=== PATIENT | female | born 1990 | race Caucasian/White ===

== ENCOUNTER 2017-11-01 11:24 | Emergency (ER) | payer SELFPAY ==
[~2017-11-01] VITALS: Ht 180.3 cm; Wt 85.7 kg
[~2017-11-01 11:24] MED LIST: AMOX500C2 PO; BUTA1CAP45 PO; CEFD300C3 PO; HYDR-3816 PO; INDO50CA PO; MECL-124 PO; NAPR-243 PO; NITR-65 PO; OXYC-12 PO; PRD20T PO; PRM25T PO; TRAM50TA2 PO
[2017-11-01] MEDS ORDERED: oxyCODONE/APAP 10/325MG (PERCOCET 10) TABLET PO ONE (12:00)
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
[2017-11-01] MEDS ORDERED: ONDANSETRON 4 MG (ZOFRAN) ORAL DISSOLVE TAB PO ONE (12:15)
[2017-11-01 12:25] LABS: BASOPHILS # (AUTO) 0.1 10^3/uL (0.0-0.1); BASOPHILS % (AUTO) 1 % (0-10); EOSINOPHILS # (AUTO) 0.1 10^3/uL (0.0-0.3); EOSINOPHILS % (AUTO) 1 % (0-10); HEMATOCRIT 41 % (35-52); HEMOGLOBIN 13.2 G/DL (11.5-16.0); LYMPHOCYTES # (AUTO) 1.7 X 10^3 (1.0-4.0); LYMPHOCYTES % (AUTO) 20 % (12-44); MEAN CORPUSCULAR HEMOGLOBIN 22 PG (25-34); MEAN CORPUSCULAR HGB CONC 32 G/DL (32-36); MEAN CORPUSCULAR VOLUME 69 FL (80-99); MEAN PLATELET VOLUME 10.2 FL (7.4-10.4); MONOCYTES # (AUTO) 0.4 X 10^3 (0.0-1.0); MONOCYTES % (AUTO) 5 % (0-12); NEUTROPHILS # (AUTO) 6.1 X 10^3 (1.8-7.8); NEUTROPHILS % (AUTO) 73 % (42-75); PLATELET COUNT 413 10^3/uL (130-400); RED BLOOD COUNT 5.98 10^6/uL (4.35-5.85); WHITE BLOOD COUNT 8.5 10^3/uL (4.3-11.0)
[2017-11-01 12:43] LABS: ALANINE AMINOTRANSFERASE 36 U/L (0-55); ALBUMIN 4.5 GM/DL (3.2-4.5); ALKALINE PHOSPHATASE 136 U/L (40-136); BILIRUBIN,TOTAL 0.3 MG/DL (0.1-1.0); BUN/CREATININE RATIO 13; CALCIUM 9.7 MG/DL (8.5-10.1); CARBON DIOXIDE 21 MMOL/L (21-32); CHLORIDE 115 MMOL/L (98-107); CREATININE SERUM 0.77 MG/DL (0.60-1.30); GFR ESTIMATED > 60; GLUCOSE 95 MG/DL (70-105); POTASSIUM 3.6 MMOL/L (3.6-5.0); SODIUM 147 MMOL/L (135-145); TOTAL PROTEIN 7.9 GM/DL (6.4-8.2)
[2017-11-01 12:59] LABS: ERYTHROCYTE SEDIMENTATION RATE 3 MM/HR (0-20)
[2017-11-01 13:18] LABS: BILIRUBIN,URINE NEGATIVE (NEGATIVE); CLARITY,URINE SLIGHTLY CLOUDY; COLOR,URINE AMBER; GLUCOSE, URINE (UA) NEGATIVE (NEGATIVE); KETONES,URINE NEGATIVE (NEGATIVE); LEUKOCYTE ESTERASE ,URINE 2+ (NEGATIVE); NITRITE,URINE NEGATIVE (NEGATIVE); PH,URINE 5 (5-9); PROTEIN,URINE 2+ (NEGATIVE); UROBILINOGEN,URINE NORMAL (NORMAL)
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
[2017-11-01 13:32] LABS: AMPHETAMINE SCREEN, URINE NEGATIVE (NEGATIVE); BARBITURATE SCREEN URINE NEGATIVE (NEGATIVE); BENZODIAZEPINES SCREEN URINE NEGATIVE (NEGATIVE); CANNABINOID SCREEN, URINE POSITIVE (NEGATIVE); COCAINE SCREEN URINE NEGATIVE (NEGATIVE); METHADONE STAT NEGATIVE (NEGATIVE); METHAMPHETAMINE SCREEN URINE S NEGATIVE (NEGATIVE); OPIATE SCREEN URINE POSITIVE (NEGATIVE); OXYCODONE STAT NEGATIVE (NEGATIVE); PROPOXYPHENE STAT NEGATIVE (NEGATIVE); TRICYCLIC ANTIDEPRESSANTS SCRE NEGATIVE (NEGATIVE)
[2017-11-01 13:43] LABS: BACTERIA,URINE TRACE /HPF; RBC,URINE RARE /HPF
[2017-11-01 13:44] LABS: AMORPHOUS SEDIMENT,UR LARGE AMOR URATES /LPF
[2017-11-01] MEDS ORDERED: MORP15TA69 PO (14:15)
[2017-11-01] MEDS ORDERED: OXYC-202 PO (14:15)
[2017-11-01 14:47] VITALS: BP 112/74
== END 2017-11-01 14:47 | disposition home or self-care (01) ==
LOC: EDUNIT# 11:24 → ER 11:27
DX: S72.8X1A Other fracture of right femur, initial encounter for closed fracture (principal); S71.101A Unspecified open wound, right thigh, initial encounter; G40.909 Epilepsy, unspecified, not intractable, without status epilepticus; G43.909 Migraine, unspecified, not intractable, without status migrainosus; F41.9 Anxiety disorder, unspecified; F32.9 Major depressive disorder, single episode, unspecified; Z88.5 Allergy status to narcotic agent
CPT/HCPCS: 36415; 73552; 80053; 80306; 81000; 85025; 85652; 86141; 87040; 87070; 87205

== ENCOUNTER 2017-11-07 02:59 | Emergency (ER) | payer SELFPAY ==
[~2017-11-07] VITALS: Ht 180.3 cm; Wt 85.7 kg
[~2017-11-07 02:59] MED LIST changes: +MORP15TA69 PO; +OXYC-202 PO
[2017-11-07] MEDS ORDERED: GABA800T PO (03:14)
[2017-11-07] MEDS ORDERED: NS IV 1000 ML 1,000 ML IV ONE (03:24)
[2017-11-07] MEDS ORDERED: HYOSCYAMINE 0.125 MG (LEVSIN) TAB SL ONE (03:30)
[2017-11-07] MEDS ORDERED: ONDANSETRON 4 MG/2 ML (SDV) Z0FRAN IVP ONE (03:30)
[2017-11-07 03:31] LABS: BILIRUBIN,URINE NEGATIVE (NEGATIVE); CLARITY,URINE CLEAR; COLOR,URINE AMBER; GLUCOSE, URINE (UA) NEGATIVE (NEGATIVE); KETONES,URINE NEGATIVE (NEGATIVE); LEUKOCYTE ESTERASE ,URINE 2+ (NEGATIVE); NITRITE,URINE NEGATIVE (NEGATIVE); PH,URINE 6 (5-9); PROTEIN,URINE 2+ (NEGATIVE); UROBILINOGEN,URINE NORMAL (NORMAL)
--- NOTE | 2017-11-07 03:38 | ED Abdominal Pain ---
General Chief Complaint: Abdominal/GI Problems Stated Complaint: VOMITING,SEVERE ABD PAIN Nursing Triage Note: N/V, ABD PAIN Sepsis Screen: No Definite Risk Source of Information: Patient Exam Limitations: No Limitations (DAVID GALLEGOS MD) History of Present Illness Date Seen by Provider: Nov 07, 2017 Time Seen by Provider: 03:11 Initial Comments This 27-year-old young lady presents to the emergency room with abdominal pain and cramping, vomiting, and mild diarrhea that started around 01:30. She describes the pain as a waxing and waning burning. She denies . She has had no fever. She has had no blood in her emesis or diarrhea. Patient is new to the area and has no primary care provider. She moved from [place] where she was being treated for osteomyelitis of the right femur. She is on long- term antibiotics. She has a wound dressing on the lateral right thigh. (DAVID GALLEGOS MD) Allergies and Home Medications Allergies Coded Allergies: codeine (Unverified Allergy, Unknown, 11/01/17) Home Medications Butalb/Acetaminophen/Caffeine 1 Each Capsule, 1-2 EACH PO Q6H PRN for HEADACHE Prescribed by: SHARONDA PHOENIX on 03/28/15 0419 Morphine Sulfate 15 Mg Tablet.er, 15 MG PO BID Prescribed by: AIYANA MCNAMARA on 11/01/17 1415 Oxycodone HCl/Acetaminophen 1 Each Tablet, 1 EACH PO Q6H PRN for PAIN-MODERATE Prescribed by: AIYANA MCNAMARA on 11/01/17 1415 Patient Home Medication List Home Medication List Reviewed: Yes (DAVID GALLEGOS MD) Review of Systems Constitutional: no symptoms reported EENTM: No Symptoms Reported Respiratory: No Symptoms Reported Cardiovascular: No Symptoms Reported Gastrointestinal: See HPI Genitourinary: No Symptoms Reported Musculoskeletal: no symptoms reported Skin: no symptoms reported Psychiatric/Neurological: No Symptoms Reported Endocrine: No Symptoms Reported Hematologic/Lymphatic: No Symptoms Reported (DAVID GALLEGOS MD) Past Ztfflbz-Hhxhqk-Pbxntg Hx Past Med/Social Hx: Reviewed and Corrections made (DAVID GALLEGOS MD) Patient Social History Alcohol Use: Denies Use Recreational Drug Use: No Smoking Status: Current Everyday Smoker 2nd Hand Smoke Exposure: Yes Recent Foreign Travel: No Contact w/Someone Who Travel: No Recent Infectious Disease Expo: No Recent Hopitalizations: Yes (E.D. 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 ) Headaches /Migraines, Seizure Disorder : No Reproductive Disorders: No Genitourinary: No Gastrointestinal: No Musculoskeletal: Yes (LEFT CARPAL TUNNEL-NO REPAIR, osteomyelitis right femur with chronic open wound) Endocrine: No Cancer: No Psychosocial: Yes (NO LONGER ON MEDS) Anxiety, Depression Integumentary: No Blood Disorders: No (anemia with ) Adverse Reaction/Blood Tranf: No (DAVID GALLEGOS MD) Physical Exam Vital Signs Vital Signs - First Documented 11/07/17 03:05 Temp 97.9 Pulse 75 Resp 18 B/P (MAP) 117/89 (98) Pulse Ox 99 O2 Delivery Room Air (MANGO KAISER MD) Vital Signs Capillary Refill : Less Than 3 Seconds (DAVID GALLEGOS MD) Height/Weight/BMI Height: 5'11.00" Weight: 189lbs. oz. 85.887180gh; 24.82 BMI Method:Stated General Appearance: WD/WN, mild distress HEENT: PERRL/EOMI, normal ENT inspection, other (mucous membranes somewhat dry) Neck: normal inspection Respiratory: lungs clear, normal breath sounds, no respiratory distress, no accessory muscle use Cardiovascular: regular rate, rhythm, no edema, no murmur Gastrointestinal: soft, abnormal bowel sounds (decreased), tenderness ( scattered, most prominent in the epigastrium and right upper quadrant) Extremities: no pedal edema, other (Post traumatic and surgical changes in the right thigh with draining tunneling wound on the right lateral thigh.) Neurologic/Psychiatric: floral manager II-XII nml as tested, no motor/sensory deficits, alert, normal mood/affect, oriented x 3 Skin: normal color, warm/dry (DAVID GALLEGOS MD) Procedures/Interventions Suture Size: 4-0 (DAVID GALLEGOS MD) Progress/Results/Core Measures Results/Orders Lab Results Laboratory Tests Test 11/07/17 03:00 11/07/17 03:35 Range/Units Urine Color [place] H Urine Clarity CLEAR Urine pH 6 5-9 Urine Specific [place] 1.020 1.016-1.022 Urine Protein 2+ H NEGATIVE Urine Glucose (UA) NEGATIVE NEGATIVE Urine Ketones NEGATIVE NEGATIVE Urine Nitrite NEGATIVE NEGATIVE Urine Bilirubin NEGATIVE NEGATIVE Urine Urobilinogen NORMAL NORMAL MG/DL Urine Leukocyte Esterase 2+ H NEGATIVE Urine RBC (Auto) NEGATIVE NEGATIVE Urine RBC NONE /HPF Urine WBC 2-5 /HPF Urine Squamous Epithelial Cells 2-5 /HPF Urine Crystals NONE /LPF Urine Bacteria FEW H /HPF Urine Casts NONE /LPF Urine Mucus LARGE H /LPF Urine Culture Indicated NO White Blood Count 8.5 4.3-11.0 10^3/uL Red Blood Count 5.76 4.35-5.85 10^6/uL Hemoglobin 12.5 11.5-16.0 G/DL Hematocrit 39 35-52 % Mean Corpuscular Volume 68 L 80-99 FL Mean Corpuscular Hemoglobin 22 L 25-34 PG Mean Corpuscular Hemoglobin Concent 32 32-36 G/DL Red Cell Distribution Width 16.5 H 10.0-14.5 % Platelet Count 310 130-400 10^3/uL Mean Platelet Volume 10.3 7.4-10.4 FL Neutrophils (%) (Auto) 68 42-75 % Lymphocytes (%) (Auto) 23 12-44 % Monocytes (%) (Auto) 5 0-12 % Eosinophils (%) (Auto) 3 0-10 % Basophils (%) (Auto) 1 0-10 % Neutrophils # (Auto) 5.8 1.8-7.8 X 10^3 Lymphocytes # (Auto) 2.0 1.0-4.0 X 10^3 Monocytes # (Auto) 0.4 0.0-1.0 X 10^3 Eosinophils # (Auto) 0.2 0.0-0.3 10^3/uL Basophils # (Auto) 0.0 0.0-0.1 10^3/uL Sodium Level 148 H 135-145 MMOL/L Potassium Level 3.1 L 3.6-5.0 MMOL/L Chloride Level 115 H 98-107 MMOL/L Carbon Dioxide Level 23 21-32 MMOL/L Anion Gap 10 5-14 MMOL/L Blood Urea Nitrogen 7 7-18 MG/DL Creatinine 0.69 0.60-1.30 MG/DL Estimat Glomerular Filtration Rate > 60 BUN/Creatinine Ratio 10 Glucose Level 105 70-105 MG/DL Calcium Level 9.7 8.5-10.1 MG/DL Magnesium Level 2.1 1.8-2.4 MG/DL Total Bilirubin 0.3 0.1-1.0 MG/DL Aspartate Amino Transf (AST/SGOT) 29 5-34 U/L Alanine Aminotransferase (ALT/SGPT) 36 0-55 U/L Alkaline Phosphatase 118 40-136 U/L Total Protein 7.3 6.4-8.2 GM/DL Albumin 4.2 3.2-4.5 GM/DL Lipase 32 8-78 U/L Serum Test, Qualitative NEGATIVE NEGATIVE (MANGO KAISER MD) Medications Given in ED Current Medications Medications Dose Ordered Sig/Taryn Route Start Time Stop Time Status Last Admin Dose Admin Al Hydrox/Mg Hydrox/Simethicone 30 ml ONCE ONCE PO 11/07/17 04:45 11/07/17 04:46 DC 11/07/17 05:10 30 ML Fentanyl Citrate 50 mcg ONCE ONCE IVP 11/07/17 04:15 11/07/17 04:16 DC 11/07/17 04:10 50 MCG Fentanyl Citrate 100 mcg ONCE ONCE IVP 11/07/17 06:00 11/07/17 06:01 DC 11/07/17 05:58 100 MCG Hyoscyamine Sulfate 0.25 mg ONCE ONCE SL 11/07/17 03:30 11/07/17 03:31 DC 11/07/17 03:37 0.25 MG Iohexol 100 ml ONCE ONCE IV 11/07/17 06:00 11/07/17 06:01 DC 11/07/17 06:15 100 ML Lidocaine HCl 15 ml ONCE ONCE PO 11/07/17 04:45 11/07/17 04:46 DC 11/07/17 05:10 15 ML Ondansetron HCl 8 mg ONCE ONCE IVP 11/07/17 03:30 11/07/17 03:31 DC 11/07/17 03:37 8 MG Promethazine HCl 25 mg ONCE ONCE IVP 11/07/17 04:15 11/07/17 04:16 DC 11/07/17 04:17 25 MG Ranitidine HCl 50 mg ONCE ONCE IV 11/07/17 04:45 11/07/17 04:46 DC 11/07/17 05:10 50 MG Sodium Chloride 250 ml ONCE ONCE IV 11/07/17 06:00 11/07/17 06:01 DC 11/07/17 06:15 80 ML Sodium Chloride 1,000 ml @ 0 mls/hr Q0M ONCE IV 11/07/17 03:24 11/07/17 03:26 DC 11/07/17 03:37 0 MLS/HR (MANGO KAISER MD) Vital Signs/I&O 11/07/17 03:05 Temp 97.9 Pulse 75 Resp 18 B/P (MAP) 117/89 (98) Pulse Ox 99 O2 Delivery Room Air (MANGO KAISER MD) Blood Pressure Mean: 98 Progress Progress Note #1: Time: 03:38 Progress Note Patient seen and examined. Labs and UA ordered. IV fluids ordered along with Levsin and Zofran for treatment of symptoms. Progress Note #2: Time: 05:02 Progress Note The patient's nausea has improved after Zofran and Phenergan but pain continues despite receiving fentanyl. Patient was reexamined and found to have persistent tenderness especially in the epigastrium and right upper quadrant. She is surgically absent gallbladder. GI cocktail and ranitidine have been ordered. Progress Note #3: Time: 06:00 Progress Note Patient stated the GI cocktail and ranitidine temporarily improved her pain but the pain rebounded with more intensity. She was in distress from the pain. Fentanyl 100 g was ordered. Patient is agreeable to further workup with CT of the abdomen and pelvis. Care of this patient is being transferred to Dr. Kaiser. (DAVID GALLEGOS MD) Progress Note : Progress Note 0640: I have reexamined the patient. She is complaining of lower abdominal pain centrally between the bellybutton and the symphysis pubis that radiates up to her chest and back. She states that it's quite severe at times although a little better now after the fentanyl. Heart is regular in rate and rhythm. Lungs are clear to auscultation bilaterally. Bowel sounds are normal. Abdomen is soft with tenderness in the area described above. There is no rebound or guarding. CT abdomen and pelvis are pending. I did discuss with her about establishing care here. She did have appointment at [facility] yesterday and they will refill her chronic pain medicines as well as prescriptions for antibiotics for her leg. They are working other issues related to insurance and referral for her chronic leg wound. Monitor patient. 0744: Patient still a little bit of pain but states much better. CT is reassuring at this point. She would like to just go home and then she'll return if things worsen. We will initiate outpatient [id number]-yot-[id number] famotidine. Discharged home with return precautions. Patient verbalize understanding instructions and agreement with plan. (MANGO KAISER MD) Diagnostic Imaging Diagonstic Imaging: CT Plain Films/CT/US/NM/MRI: abdomen, pelvis Comments VIA [facility]. [place], [place] NAME: THIAGO TAVAREZ [facility] REC#: [id number] PT STATUS: REG ER : 1990 PHYSICIAN: DAVID GALLEGOS MD ADMIT DATE: 11/07/17/ER Draft Date of Exam:11/07/17 CT ABDOMEN/PELVIS W PROCEDURE: CT abdomen and pelvis with contrast. TECHNIQUE: Multiple contiguous axial images were obtained through the abdomen and pelvis after administration of intravenous contrast. INDICATION: Nausea, vomiting, abdominal pain, history of trauma. COMPARISON: None. FINDINGS: The lung bases are clear. The gallbladder is surgically absent. Solid organs, vascular structures and bowel are grossly unremarkable. There is no free air or abscess. There is a MANAGER CARGO shunt line terminating within the pelvis. There is trace free fluid within the pelvis. Uterus is intact. Distal ureters and urinary bladder are grossly normal. Chronic pelvic fractures are present. There is no inflammatory process. IMPRESSION: 1. Surgically absent gallbladder. 2. MANAGER CARGO shunt line terminating within the pelvis with small amount of ascites. This could be physiologic from the ovaries or the drainage from the line itself. 3. Remainder of the abdomen and pelvis is within normal limits. Dictated on workstation # [id number] Dict: 11/07/17 0651 Trans: 11/07/17 0715 [facility] [id number] Interpreted by: CHANO LOMELI Electronically signed by: Reviewed: Reviewed by Me (MANGO KAISER MD) Departure Impression Primary Impression: Nausea vomiting and diarrhea Additional Impression: Lower abdominal pain Disposition: 01 HOME, SELF-CARE Condition: Stable Departure-Patient Inst. Decision time for Depature: 07:44 (MANGO KAISER MD) Referrals: [facility] (PCP/Family) Primary Care Physician CHELSEA EDGAR DO Patient Instructions: Acute Abdomen (Belly Pain), Adult (DC), Diarrhea and Traveler's Diarrhea, Adult (DC), Nausea and Vomiting, Adult (DC) Add. Discharge Instructions: All discharge instructions reviewed with patient and/or family. Voiced understanding. Continue home medicines as previously prescribed. Follow-up with your doctor this week for recheck and further evaluation. You may follow-up with the surgeon listed or of your choice within the next week as needed. You may initiate [id number] Pepcid or the generic famotidine 20 mg twice daily for the next 3 days and then daily thereafter as needed for stomach upset. Clear liquid diet for the next 24 hours and then advance as tolerated. Return for worse pain, fever, vomiting, weakness, breathing problems or other concerns as needed. Copy Copies To 1: JERE PENA JOSHUA T MD Nov 07, 2017 03:38 MANGO KAISER MD Nov 07, 2017 07:29
[2017-11-07 03:40] LABS: BACTERIA,URINE FEW /HPF
[2017-11-07 03:45] LABS: BASOPHILS % (AUTO) 1 % (0-10); EOSINOPHILS # (AUTO) 0.2 10^3/uL (0.0-0.3); EOSINOPHILS % (AUTO) 3 % (0-10); HEMATOCRIT 39 % (35-52); HEMOGLOBIN 12.5 G/DL (11.5-16.0); LYMPHOCYTES % (AUTO) 23 % (12-44); MEAN CORPUSCULAR HEMOGLOBIN 22 PG (25-34); MEAN CORPUSCULAR HGB CONC 32 G/DL (32-36); MEAN CORPUSCULAR VOLUME 68 FL (80-99); MEAN PLATELET VOLUME 10.3 FL (7.4-10.4); MONOCYTES # (AUTO) 0.4 X 10^3 (0.0-1.0); MONOCYTES % (AUTO) 5 % (0-12); NEUTROPHILS # (AUTO) 5.8 X 10^3 (1.8-7.8); NEUTROPHILS % (AUTO) 68 % (42-75); PLATELET COUNT 310 10^3/uL (130-400); RED BLOOD COUNT 5.76 10^6/uL (4.35-5.85); RED CELL DISTRIBUTION WIDTH 16.5 % (10.0-14.5); WHITE BLOOD COUNT 8.5 10^3/uL (4.3-11.0)
[2017-11-07 04:02] LABS: ALANINE AMINOTRANSFERASE 36 U/L (0-55); ALBUMIN 4.2 GM/DL (3.2-4.5); ALKALINE PHOSPHATASE 118 U/L (40-136); BILIRUBIN,TOTAL 0.3 MG/DL (0.1-1.0); BUN/CREATININE RATIO 10; CALCIUM 9.7 MG/DL (8.5-10.1); CARBON DIOXIDE 23 MMOL/L (21-32); CHLORIDE 115 MMOL/L (98-107); CREATININE SERUM 0.69 MG/DL (0.60-1.30); GFR ESTIMATED > 60; GLUCOSE 105 MG/DL (70-105); LIPASE 32 U/L (8-78); MAGNESIUM 2.1 MG/DL (1.8-2.4); POTASSIUM 3.1 MMOL/L (3.6-5.0); SODIUM 148 MMOL/L (135-145); TOTAL PROTEIN 7.3 GM/DL (6.4-8.2)
[2017-11-07] MEDS ORDERED: fentaNYL INJECTION 100 MCG/2 ML AMP IVP ONE ×2 (04:15→06:00)
[2017-11-07] MEDS ORDERED: PROMETHAZINE INJ 25 MG/ML (PHENERGAN) AMP IVP ONE (04:15)
[2017-11-07] MEDS ORDERED: raNItidine 50 MG/2 ML INJ (ZANTAC) IV ONE (04:45)
[2017-11-07] MEDS ORDERED: LIDOCAINE 2% VISCOUS 15 ML UDC PO ONE (04:45)
[2017-11-07] MEDS ORDERED: ANTACID SUSP 30 ML UDC (MYLANTA) PO ONE (04:45)
[2017-11-07] MEDS ORDERED: NS 250 ML (IVPB) BAG IV ONE (06:00)
[2017-11-07] MEDS ORDERED: IOHEXOL 350 MG/ML 100 ML (OMNIPAQUE 350) VIAL IV ONE (06:00)
--- NOTE | 2017-11-07 07:16 | Diagnostic Imaging Report ---
PROCEDURE: CT abdomen and pelvis with contrast. TECHNIQUE: Multiple contiguous axial images were obtained through the abdomen and pelvis after administration of intravenous contrast. INDICATION: Nausea, vomiting, abdominal pain, history of trauma. COMPARISON: None. FINDINGS: The lung bases are clear. The gallbladder is surgically absent. Solid organs, vascular structures and bowel are grossly unremarkable. There is no free air or abscess. There is a WOOD MECHANIST shunt line terminating within the pelvis. There is trace free fluid within the pelvis. Uterus is intact. Distal ureters and urinary bladder are grossly normal. Chronic pelvic fractures are present. There is no inflammatory process. IMPRESSION: 1. Surgically absent gallbladder. 2. WOOD MECHANIST shunt line terminating within the pelvis with small amount of ascites. This could be physiologic from the ovaries or the drainage from the line itself. 3. Remainder of the abdomen and pelvis is within normal limits. Dictated by: Dictated on workstation # [id number]
[2017-11-07 07:53] VITALS: BP 102/65
== END 2017-11-07 07:56 | disposition home or self-care (01) ==
LOC: EDUNIT# 02:59 → ER 03:02
DX: R11.2 Nausea with vomiting, unspecified (principal); R19.7 Diarrhea, unspecified; R10.30 Lower abdominal pain, unspecified; F17.200 Nicotine dependence, unspecified, uncomplicated; G43.909 Migraine, unspecified, not intractable, without status migrainosus; G40.909 Epilepsy, unspecified, not intractable, without status epilepticus; F41.9 Anxiety disorder, unspecified; F32.9 Major depressive disorder, single episode, unspecified; Z88.5 Allergy status to narcotic agent; Z87.59 Personal history of other complications of pregnancy, childbirth and the puerperium
CPT/HCPCS: 36415; 74177; 80053; 81000; 83690; 83735; 84703; 85025; 96361; 96374; 96375; 96376

== ENCOUNTER → 2018-01-17 | Outpatient (CLI) | payer BC, MEDICAID ==
[~2018-01-17] MED LIST changes: +GABA800T PO; -OXYC-202 PO; +OXYC1TAB12 PO
[2018-01-17 17:32] LABS: BASOPHILS % (AUTO) 0 % (0-10); EOSINOPHILS # (AUTO) 0.3 10^3/uL (0.0-0.3); EOSINOPHILS % (AUTO) 4 % (0-10); HEMATOCRIT 26 % (35-52); HEMOGLOBIN 8.4 G/DL (11.5-16.0); LYMPHOCYTES # (AUTO) 1.5 X 10^3 (1.0-4.0); LYMPHOCYTES % (AUTO) 20 % (12-44); MEAN CORPUSCULAR HEMOGLOBIN 24 PG (25-34); MEAN CORPUSCULAR HGB CONC 32 G/DL (32-36); MEAN CORPUSCULAR VOLUME 74 FL (80-99); MEAN PLATELET VOLUME 9.2 FL (7.4-10.4); MONOCYTES # (AUTO) 0.5 X 10^3 (0.0-1.0); MONOCYTES % (AUTO) 6 % (0-12); NEUTROPHILS # (AUTO) 5.2 X 10^3 (1.8-7.8); NEUTROPHILS % (AUTO) 69 % (42-75); PLATELET COUNT 343 10^3/uL (130-400); RED BLOOD COUNT 3.56 10^6/uL (4.35-5.85); RED CELL DISTRIBUTION WIDTH 17.5 % (10.0-14.5); WHITE BLOOD COUNT 7.5 10^3/uL (4.3-11.0)
[2018-01-17 17:48] LABS: ALANINE AMINOTRANSFERASE 19 U/L (0-55); ALBUMIN 3.2 GM/DL (3.2-4.5); ALKALINE PHOSPHATASE 139 U/L (40-136); BILIRUBIN,TOTAL 0.3 MG/DL (0.1-1.0); BUN/CREATININE RATIO 16; CALCIUM 8.6 MG/DL (8.5-10.1); CARBON DIOXIDE 26 MMOL/L (21-32); CHLORIDE 107 MMOL/L (98-107); CREATININE SERUM 0.64 MG/DL (0.60-1.30); GFR ESTIMATED > 60; GLUCOSE 96 MG/DL (70-105); SODIUM 140 MMOL/L (135-145); TOTAL PROTEIN 6.5 GM/DL (6.4-8.2)
== END ==
LOC: HH 08:00
PROVIDERS: ATTEND Orthopaedic Surgery
DX: M86.60 Other chronic osteomyelitis, unspecified site (principal); B96.5 Pseudomonas (aeruginosa) (mallei) (pseudomallei) as the cause of diseases classified elsewhere; D64.9 Anemia, unspecified
CPT/HCPCS: 80053; 85025

== ENCOUNTER 2018-01-20 19:41 | Emergency (ER) | payer BC, MEDICAID ==
[~2018-01-20] VITALS: Ht 175.3 cm; Wt 90.7 kg
--- OUTSIDE RECORDS SUMMARY | 2018-01-20 19:48 | XMS REPORT | Encounter Summary ---
Author Author [facility] Organization [facility] Address Unknown Phone Unavailable Care Team Providers Care Softwood Faller Name Role Phone Dany Sotelo MD Unavailable Dianna Collins Unavailable Unavailable Stephanie Whitfield MD PCP Encounter Details Date Type Department Care Team Description 01/16/2018 Pharmacy Visit [facility] [address] [place], [place] [id number] Social History Tobacco Use Types Packs/Day Years Used Date Current Every Day Smoker Cigarettes 0.5 3 Smokeless Tobacco: Never Used Alcohol Use Drinks/Week oz/Week Comments No Sex Assigned at Date Recorded Not on file as of this encounter Functional Status Functional Status Response Date of Assessment Does the patient have a hearing impairment: No 01/12/2018 as of this encounter Plan of Treatment Not on fileas of this encounter Visit Diagnoses Not on filein this encounter
--- OUTSIDE RECORDS SUMMARY | 2018-01-20 19:48 | XMS REPORT | Encounter Summary ---
Author Author [facility] Organization [facility] Address Unknown Phone Unavailable Care Team Providers Care Mysql Database Administrator Name Role Phone Dany Sotelo MD Unavailable Dianna Collins Unavailable Unavailable Stephanie Whitfield MD PCP Reason for Visit * Reason Comments Outpatient Antibiotic Therapy ([facility]) Encounter Details Date Type Department Care Team Description 01/17/2018 Telephone [facility] Raquel Weaver MD Outpatient Antibiotic Physicians - Internal [address] Therapy ([facility]) Medicine [address] [place] [address] Pavilion Level 4C [phone] [place] [address] Social History Tobacco Use Types Packs/Day Years Used Date Current Every Day Smoker Cigarettes 0.5 3 Smokeless Tobacco: Never Used Alcohol Use Drinks/Week oz/Week Comments No Sex Assigned at Date Recorded Not on file as of this encounter Functional Status Functional Status Response Date of Assessment Does the patient have a hearing impairment: No 01/12/2018 as of this encounter Miscellaneous Notes * Telephone Encounter - Yu Shabazz RN - 01/17/2018 2:34 PM CDT Infectious Diseases reconciliation note from [facility] discharge on 01/[address] Weaver 1. Zosyn IV 18 gm Q24 hrs via continuous infusion, approximate end date 6-8 weeks 02/22 or 03/08 Confirmed w/ Josselyn from [facility]. 2. Weekly labs to be drawn every Monday, with start date 01/17: CBC w/Diff, CMP confirmed with Karlee from [facility]. 3. Weekly PICC care per protocol. 4. Follow up: 2-3 Weeks unless sooner with Dr. Miguel in this encounter Plan of Treatment Not on fileas of this encounter Visit Diagnoses Not on filein this encounter
--- OUTSIDE RECORDS SUMMARY | 2018-01-20 19:48 | XMS REPORT | Encounter Summary ---
Author Author [facility] Organization [facility] Address Unknown Phone Unavailable Care Team Providers Care Accident Report Clerk Name Role Phone Dany Sotelo MD Unavailable Dianna Collins Unavailable Unavailable Stephanie Whitfield MD PCP Encounter Details Date Type Department Care Team Description 01/19/2018 Outpt. [facility] Raquel Weaver MD Antibiotic Physicians - Internal [address] [facility] Therapy Medicine [address] [place] [address] Pavilion Level 4C [phone] [address] [facility] [place] [address] Social History Tobacco Use Types [...] Treatment Not on fileas of this encounter Procedures Procedure Name Priority Date/Time Associated Diagnosis Comments PLATELET COUNT Routine 01/17/2018 Results for this 12:00 AM CDT procedure are in the results section. CBC Routine 01/17/2018 Results for this 12:00 AM CDT procedure are in the results section. HEMOGLOBIN Routine 01/17/2018 Results for this 12:00 AM CDT procedure are in the results section. BUN Routine 01/17/2018 Results for this 12:00 AM CDT procedure are in the results section. ALT (SGPT) Routine 01/17/2018 Results for this 12:00 AM CDT procedure are in the results section. AST (SGOT) Routine 01/17/2018 Results for this 12:00 AM CDT procedure are in the results section. POTASSIUM Routine 01/17/2018 Results for this 12:00 AM CDT procedure are in the results section. ALK PHOS TOTAL Routine 01/17/2018 Results for this 12:00 AM CDT procedure are in the results section. CREATININE Routine 01/17/2018 Results for this 12:00 AM CDT procedure are in the results section. in this encounter Results * BUN (01/17/2018) Blood Urea Nitrogen 10 OTHER OUTSIDE LAB Specimen Blood - Blood Performing Organization Address City/[facility]/Zipcode Phone Number OTHER OUTSIDE LAB * ALT (SGPT) (01/17/2018) ALT (SGPT) 19 OTHER OUTSIDE LAB Specimen Blood - Blood Performing Organization Address [facility] * AST (SGOT) (01/17/2018) AST (SGOT) 21 OTHER OUTSIDE LAB Specimen Blood - Blood Performing Organization Address City/[facility]/Zipcode Phone Number OTHER OUTSIDE LAB * POTASSIUM (01/17/2018) Potassium 4.0 OTHER OUTSIDE LAB Specimen Blood - Blood Performing Organization Address City/[facility]/Zipcode Phone Number OTHER OUTSIDE LAB * ALK PHOS TOTAL (01/17/2018) Alk Phosphatase 139 OTHER OUTSIDE LAB Specimen Blood - Blood Performing Organization Address City/[facility]/Zipcode Phone Number OTHER OUTSIDE LAB * CREATININE (01/17/2018) Creatinine 0.64 OTHER OUTSIDE LAB Specimen Blood - Blood Performing Organization Address City/[facility]/Zipcode Phone Number OTHER OUTSIDE LAB * PLATELET COUNT (01/17/2018) Platelet Count 343 OTHER OUTSIDE LAB Specimen Blood - Blood Performing Organization Address City/[facility]/Zipcode Phone Number OTHER OUTSIDE LAB * CBC (01/17/2018) White Blood Cells 7.5 OTHER OUTSIDE LAB Specimen Blood - Blood Performing Organization Address City/[facility]/Zipcode Phone Number OTHER OUTSIDE LAB * HEMOGLOBIN (01/17/2018) Hemoglobin 8.4 OTHER OUTSIDE LAB Specimen Blood - Blood Narrative Performed At Performing Organization Address City/State/Zipcode Phone Number OTHER OUTSIDE LAB in this encounter Visit Diagnoses Not on filein this encounter
--- OUTSIDE RECORDS SUMMARY | 2018-01-20 19:48 | XMS REPORT | Clinical Summary ---
Author Author [facility] Organization [facility] Address Unknown Phone Unavailable Care Team Providers Care Granulator Operator Name Role Phone Dany Sotelo MD Unavailable Dianna Collins Unavailable Unavailable Stephanie Whitfield MD PCP Source Comments Some departments are not documenting in the electronic medical record. If you do not see the information that you expected, contact Release of Information in the Health Information Management department at [phone] for further assistance in locating additional records.[facility] Allergies Active Allergy Reactions Severity Noted Date Comments Codeine RASH Medium 12/18/2017 Vancomycin SEE COMMENTS Low 01/12/2018 "mild" Red Man's Syndrome occurred when infused over 60 minutes. Patient tolerated subsequent doses 01/12/2018 when infused over 120 minutes and diphenhydramine pre-medication. Current Medications Prescription Sig. Disp. Refills Start End Date Status Date morphine SR (MS CONTIN; Take 15 mg by mouth every Active ORAMORPH SR) 15 mg tablet 12 hours gabapentin (NEURONTIN) Take 600 mg by mouth Active 600 mg tablet three times daily. acetaminophen SR(+) Take 650 mg by mouth Active (TYLENOL) 650 mg tablet every 6 hours as needed for Pain. piperacillin/tazobactam Administer 18g q 24 hours 01/17/20 Active (ZOSYN) 4.5 g/100 mL continuous. Estimated 18 iso-osmotic IVPB duration 6-8 weeks. Exact duration per ID tiZANidine (ZANAFLEX) 2 Take one tablet by mouth 40 tablet 0 01/17/20 Active mg tabletIndications: every 8 hours as needed. 18 Muscle Spasm oxyCODONE/acetaminophen Take one tablet to two 40 tablet 0 01/17/20 Active (PERCOCET; ENDOCET) tablets by mouth every 4 18 10/325 mg tablet hours as needed for Pain aspirin 325 mg tablet Take one tablet by mouth 21 tablet 0 01/17/20 Active daily. Take with food. 18 senna/docusate (SENNA Take two tablets by mouth 90 tablet 1 01/17/20 Active WITH DOCUSATE SODIUM) twice daily. Hold for 18 8.6/50 mg tablet loose stools. Take while on narcotic pain medication methocarbamol (ROBAXIN) Take 500 mg by mouth 01/17/20 Discontin 500 mg tablet three times daily. 18 ued oxyCODONE/acetaminophen Take 1 tablet by mouth 01/17/20 Discontin (PERCOCET; ENDOCET) every 6 hours as needed 18 ued 10/325 mg tablet for Pain ciprofloxacin (CIPRO) 500 Take 500 mg by mouth 01/17/20 Discontin mg tablet twice daily. 18 ued ibuprofen/diphenhydramine Take 2 tablets by mouth 01/17/20 Discontin cit (IBUPROFEN PM PO) at bedtime as needed. 18 ued Active Problems Problem Noted Date Chronic pain 01/15/2018 Overview: 01/15/2018 3:53 PM Pain Mgmt RN Consult--please see Chart Review Osteomyelitis ([facility]) 01/11/2018 Pain of right lower extremity 12/21/2017 Malfunction of ventriculoperitoneal shunt ([facility]) 04/16/2011 Headache(784.0) 04/16/2011 S/P craniotomy 04/16/2011 Overview: Exploration and revision of proximal ventriculoperitoneal shunt with replacement of valve to STRATA with initial setting of 1.0. Encounters Date Type Specialty Care Team Description 01/19/2018 Outpt. Infectious Diseases Raquel Weaver MD Antibiotic Therapy 01/17/2018 Telephone Infectious Diseases Raquel Weaver MD Outpatient Antibiotic Therapy ([facility]) 01/16/2018 Pharmacy Visit 01/11/2018 [facility] Family Medicine Ashok Talbert MD Osteomyelitis (HCC) - Encounter 01/16/2018 01/11/2018 [facility] Radiology Talib Conde MD Encounter 01/11/2018 Procedure Pass 01/11/2018 Surgery Ashok Talbert MD REMOVAL HARDWARE -DEEP-LOWER EXTREMITY. RIGHT INTRAMEDULLARY REAMINGS. 01/10/2018 Anesthesia Heaven Gonsales MD Event 01/08/2018 Office Visit Infectious Diseases Ashok Talbert MD Chronic osteomyelitis Raquel Weaver MD (HCC) (Primary Dx); Infection and inflammatory reaction due to device, implant, and graft, initial encounter (HCC); Pseudomonas infection; correction (current) use of antibiotics 12/28/2017 Prep for Case Orthopedic Surgery Nella Alegria APRN Chronic osteomyelitis of right femur with draining sinus (HCC) (Primary Dx); Heterotopic ossification of bone; Painful orthopaedic hardware (HCC) 12/27/2017 Office Visit Orthopedic Surgery Ashok Talbert MD Leg length discrepancy (Primary Dx) 12/27/2017 Hospital Radiology Ashok Talbert MD Encounter 12/20/2017 Hospital Lab Ashok Talbert MD Other chronic Encounter osteomyelitis, unspecified site (HCC) 12/20/2017 Hospital Radiology Ashok Talbert MD Encounter 12/20/2017 Office Visit Orthopedic Surgery Ashok Talbert MD Chronic osteomyelitis (HCC) (Primary Dx); 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, unspecified physeal fracture configuration, subsequent encounter; Pain in right femur 12/20/2017 Procedure Pass Radiology 12/19/2017 Orders Only Orthopedic Surgery Ashok Talbert MD Pain in right femur (Primary Dx) 12/18/2017 Office Visit Sports Medicine Robles Hurtado MD ERRONEOUS ENCOUNTER--DISREGARD (Primary Dx); Pain of right lower extremity 11/21/2017 Ancillary Radiology Outpatient, Radiologist Orders 11/01/2017 Hospital Radiology Encounter from Last 3 Months Family History Medical History Relation Name Comments Arthritis-rheumatoid Other Cancer Other Stroke Other Relation Name Status Comments Other Social History Tobacco Use Types Packs/Day Years Used Date Current Every Day Smoker Cigarettes 0.5 3 Smokeless Tobacco: Never Used Tobacco Cessation: Counseling Given: Yes Alcohol Use Drinks/Week oz/Week Comments No Sex Assigned at Date Recorded Not on file Last Filed Vital Signs Vital Sign Reading Time Taken Blood Pressure 108/70 01/16/2018 2:15 PM CDT Pulse 67 01/16/2018 2:15 PM CDT Temperature 36.9 C (98.4 F) 01/16/2018 2:15 PM CDT Respiratory Rate - - Oxygen Saturation 96% 01/16/2018 2:15 PM CDT Inhaled Oxygen - - Concentration Weight 90.8 kg (200 lb 2.8 oz) 01/11/2018 12:36 PM CDT Height 177.8 cm (5' 10") 01/11/2018 12:36 PM CDT Body Mass Index 28.72 01/11/2018 12:36 PM CDT Plan of Treatment Health Maintenance Due Date Last Done Comments PHYSICAL (COMPREHENSIVE) 1996 EXAM PERTUSSIS VACCINE 2000 HIV SCREENING 2004 TETANUS VACCINE 2006 CERVICAL CANCER SCREENING 2010 INFLUENZA VACCINE 11/22/2017 Implants Implanted Type Area Airport Guide Device Expiration Model / Identifier Date Serial / Lot Cement Bone Smartset Gentamicin Right: Depuy 05/24/2019 40gm Medium Viscosity - [id number] Femur Orthopedics 1 / Implanted: Qty: 1 on 01/11/2018 [id number] / [id number] Explanted Type Area Airport Guide Device Expiration Model / Identifier Date Serial / Lot Right Femur Deep Implant Removal Right: / Explanted: Qty: 1 on 01/11/2018 Femur RIGHT FEMUR DEEP IMPLANT REMOVAL / RIGHT FEMUR DEEP IMPLANT REMOVAL Procedures Procedure Name Priority Date/Time Associated Diagnosis Comments BUN Routine 01/17/2018 Results for this 12:00 [...] CDT procedure are in the results section. PLATELET COUNT Routine 01/17/2018 Results for this 12:00 AM CDT procedure are in the results section. CBC Routine 01/17/2018 Results for this 12:00 AM CDT procedure are in the results section. HEMOGLOBIN Routine 01/17/2018 Results for this 12:00 AM CDT procedure are in the results section. CBC Routine 01/16/2018 Results for this 4:00 AM CDT procedure are in the results section. BLOOD GASES, CENTRAL 01/15/2018 Results for this VENOUS 6:11 PM CDT procedure are in the results section. LINE PLCMT 1V CXR STAT 01/15/2018 Results for this 5:51 PM CDT procedure are in the results section. CONSULT IV THERAPY TEAM Routine 01/15/2018 3:52 PM CDT CONSULT IV THERAPY TEAM Routine 01/15/2018 8:27 AM CDT CBC Routine 01/15/2018 Results for this 4:03 AM CDT procedure are in the results section. BASIC METABOLIC PANEL Routine 01/14/2018 Results for this 4:25 AM CDT procedure are in the results section. CBC Routine 01/14/2018 Results for this 4:25 AM CDT procedure are in the results section. BASIC METABOLIC PANEL Routine 01/13/2018 Results for this 5:00 AM CDT procedure are in the results section. CBC Routine 01/13/2018 Results for this 5:00 AM CDT procedure are in the results section. CONSULT IV THERAPY TEAM Routine 01/12/2018 1:04 PM CDT BASIC METABOLIC PANEL Routine 01/12/2018 Results for this 4:31 AM CDT procedure are in the results section. CBC Routine 01/12/2018 Results for this 4:31 AM CDT procedure are in the results section. FLUORO MOBILE IN OR Routine 01/11/2018 Results for this 5:23 PM CDT procedure are in the results section. SURGICAL PATHOLOGY 01/11/2018 Results for this 5:03 PM CDT procedure are in the results section. INSERTION 01/11/2018 Chronic osteomyelitis of NON-BIODEGRADABLE DRUG 1:47 PM CDT right femur with draining DELIVERY IMPLANT sinus (HCC) DEBRIDEMENT WOUND MEDIUM 01/11/2018 Chronic osteomyelitis of 20 SQ CM OR LESS - LOWER 1:47 PM CDT right femur with draining EXTREMITY sinus (HCC) EXCISION/ CURETTAGE BONE 01/11/2018 Chronic osteomyelitis of CYST/ BENIGN TUMOR OF 1:47 PM CDT right femur with draining FEMUR sinus (HCC) REMOVAL HARDWARE -DEEP 01/11/2018 Chronic osteomyelitis of 1:47 PM CDT right femur with draining sinus (HCC) TEST-URINE STAT 01/11/2018 Results for this 12:30 PM CDT procedure are in the results section. CT LOWER EXTREM WO/W CONT Routine 12/27/2017 Chronic osteomyelitis Results for this RT 2:41 PM CDT (HCC) procedure are in the Physeal fracture of results section. proximal end of right femur with nonunion, unspecified physeal fracture configuration, subsequent encounter Pain in right femur SED RATE Routine 12/20/2017 Chronic osteomyelitis Results for this 1:07 PM CDT (HCC) procedure are in the Physeal fracture of results section. proximal end of right femur with nonunion, unspecified physeal fracture configuration, subsequent encounter COMPREHENSIVE METABOLIC Routine 12/20/2017 Chronic osteomyelitis Results for this PANEL 1:07 PM CDT (HCC) procedure are in the Physeal fracture of results section. proximal end of right femur with nonunion, unspecified physeal fracture configuration, subsequent encounter CBC AND DIFF Routine 12/20/2017 Chronic osteomyelitis Results for this 1:07 PM CDT (HCC) procedure are in the Physeal fracture of results section. proximal end of right femur with nonunion, unspecified physeal fracture configuration, subsequent encounter C REACTIVE PROTEIN (CRP) Routine 12/20/2017 Chronic osteomyelitis Results for this 1:07 PM CDT (HCC) procedure are in the Physeal fracture of results section. proximal end of right femur with nonunion, unspecified physeal fracture configuration, subsequent encounter FEMUR 2 VIEWS RIGHT Routine 12/20/2017 Pain in right femur Results for this 12:17 PM CDT procedure are in the results section. GENERAL RAD LOWER EXT Routine 11/01/2017 Results for this EXTERNAL IMAGING 1:10 PM CDT procedure are in the results section. from Last 3 Months Results * PLATELET COUNT (01/17/2018) Platelet Count 343 OTHER OUTSIDE LAB Specimen Blood - Blood Performing Organization Address [facility] Phone Number OTHER OUTSIDE LAB * CBC (01/17/2018) Only the most recent of 6 results within the time period is included. White Blood Cells 7.5 OTHER OUTSIDE LAB Specimen Blood - Blood Performing Organization Address City/[facility]/Zipcode Phone Number OTHER OUTSIDE LAB * HEMOGLOBIN (01/17/2018) Hemoglobin 8.4 OTHER OUTSIDE LAB Specimen Blood - Blood Narrative Performed At Performing Organization Address City/[facility]/Zipcode Phone Number OTHER OUTSIDE LAB * BUN (01/17/2018) Blood Urea Nitrogen 10 OTHER OUTSIDE LAB Specimen Blood - Blood Performing Organization Address City/[facility] Phone Number OTHER OUTSIDE LAB * ALT (SGPT) (01/17/2018) ALT (SGPT) 19 OTHER OUTSIDE LAB Specimen Blood - Blood Performing Organization Address City/State/Zipcode Phone Number OTHER OUTSIDE LAB * AST (SGOT) (01/17/2018) AST (SGOT) 21 OTHER OUTSIDE LAB Specimen Blood - Blood Performing Organization Address City/[facility]/Zipcode Phone Number OTHER OUTSIDE LAB * POTASSIUM (01/17/2018) Potassium 4.0 OTHER OUTSIDE LAB Specimen Blood - Blood Performing Organization Address City/State/Zipcode Phone Number OTHER OUTSIDE LAB * ALK PHOS TOTAL (01/17/2018) Alk Phosphatase 139 OTHER OUTSIDE LAB Specimen Blood - Blood Performing Organization Address City/State/Zipcode Phone Number OTHER OUTSIDE LAB * CREATININE (01/17/2018) Creatinine 0.64 OTHER OUTSIDE LAB Specimen Blood - Blood Performing Organization Address City/[facility] Phone Number OTHER OUTSIDE LAB * BLOOD GASES, CENTRAL VENOUS (01/15/2018 6:11 PM) PH-Central Venous 7.39 7.30 - 7.40 [facility] PCO2-Central Venous 45 >40 MMHG [facility] PO2-Central Venous 33 (L) 40 - 50 MMHG [facility] Base Excess-Central 2.0 MMOL/L [facility] Venous O2 Sat (Calc)-Central 57.3 (L) 65 - 75 % [facility] Venous Bicarb-Central Venous 25.6 MMOL/L [facility] Performing Organization Address City/[facility] Phone Number [facility] [address] [place] [address] * LINE PLCMT 1V CXR (01/15/2018 5:51 PM) Impressions Performed At Left PICC is in place which does not cross midline with the catheter tip [facility] overlying the heart to the left of midline. Findings are most suggestive of placement within a left-sided SVC or other left-sided venous structure such as the hemiazygos vein. Arterial placement is considered less likely given that the catheter does not overlie the location of the thoracic aorta. Blood gas analysis is recommended for further evaluation. By my electronic signature, I attest that I have personally reviewed the images for this examination and formulated the interpretations and opinions expressed in this report Finalized by Joby Willis M.D. on 01/15/2018 6:03 PM. Dictated by Artis Pedro M.D. on 01/15/2018 5:53 PM. Narrative Performed At [facility] 1 CXR [facility] RES[facility] History: PICC line placement. Comparison: Chest radiograph April 16, 2011 Findings: ILLUMINATOR shunt catheter remains in place tracking from the right lower neck below the diaphragm with the tip not [id number]. Left PICC is in place which does not cross midline with the catheter tip overlying the heart to the left of midline. The catheter does not overlie the expected location of the aortic arch. Heart size and pulmonary vasculature are within normal limits. No consolidation, pleural effusion, or pneumothorax. Multiple right-sided anterior rib fracture deformities are noted, likely chronic. Procedure Note Interface, Radiant Results - 01/15/2018 6:[address] [facility] 1V CXR History: PICC line placement. Comparison: Chest radiograph April 16, 2011 Findings: ILLUMINATOR shunt catheter remains in place tracking from the right lower neck below the diaphragm with the tip not [id number]. Left PICC is in place which does not cross midline with the catheter tip overlying the heart to the left of midline. The catheter does not overlie the expected location of the aortic arch. Heart size and pulmonary vasculature are within normal limits. No consolidation, pleural effusion, or pneumothorax. Multiple right-sided anterior rib fracture deformities are noted, likely chronic. IMPRESSION Left PICC is in place which does not cross midline with the catheter tip overlying the heart to the left of midline. Findings are most suggestive of placement within a left-sided SVC or other left-sided venous structure such as the hemiazygos vein. Arterial placement is considered less likely given that the catheter does not overlie the location of the thoracic aorta. Blood gas analysis is recommended for further evaluation. By my electronic signature, I attest that I have personally reviewed the images for this examination and formulated the interpretations and opinions expressed in this report Finalized by Joby Willis M.D. on 01/15/2018 6:03 PM. Dictated by Artis Pedro M.D. on 01/15/2018 5:53 PM. Performing Organization Address City/State/Zipcode Phone Number [facility] * BASIC METABOLIC PANEL (01/14/2018 4:25 AM) Only the most recent of 3 results within the time period is included. [facility] 140 137 - 147 MMOL/L MAIN LAB Potassium 3.6 3.5 - 5.1 MMOL/L [facility] Chloride 106 98 - 110 MMOL/L [facility] CO2 27 21 - 30 MMOL/L [facility] Anion Gap 7 3 - 12 [facility] Glucose 111 (H) 70 - 100 MG/DL [facility] Blood Urea Nitrogen 5 (L) 7 - 25 MG/DL [facility] Creatinine 0.55 0.4 - 1.00 MG/DL [facility] Calcium 8.4 (L) 8.5 - 10.6 MG/DL [facility] eGFR Non >60 >60 mL/min [facility] Comment: The eGFR is not validated for use in drug dosing adjustments.Continue to use estimated creatinine clearance per dosing reference text.Please contact the Clinical Pharmacist for questions. eGFR >60 >60 mL/min [facility] Comment: The eGFR is not validated for use in drug dosing adjustments.Continue to use estimated creatinine clearance per dosing reference text.Please contact the Clinical Pharmacist for questions. Specimen Blood Performing Organization Address City/State/Zipcode Phone Number [facility] [address] [place] [address] * FLUORO MOBILE IN OR (01/11/2018 5:23 PM) Narrative Performed At This order has been auto finalized and does not contain a result. NABOR MOFFETT Performing Organization Address City/State/Zipcode Phone Number [facility] * SURGICAL PATHOLOGY (01/11/2018 5:03 PM) PATHOLOGY REPORT [email or web address] Department of Pathology and Laboratory Medicine [address] [place] [id number] Surgical Pathology Office:[phone] :[phone] SURGICAL PATHOLOGY REPORT NAME: THIAGO CATES SURG PATH #: [id number] MR #: [id number] SPECIMEN CLASS: SR BILLING #: [id number] ALT ID #:LOCATION: [id number] DATE OF PROCEDURE: 01/11/2018 AGE:27 SEX: F DATE RECEIVED: 01/12/2018 : 1990TIME RECEIVED:08:50 PHYSICIAN: ASHOK TALBERT DATE OF REPORT: 01/15/2018 COPY TO:DATE OF PRINTIN01/15/2018 ############################## ############################## ############ Final Diagnosis: A. Bone, "right femoral intramedullary reamings", curettings: Prominent intramedullary fibrosis and fragments of necrotic bone, consistent clinically with nonunion. See comment Comment: Significant inflammation is not noted. The marrow appears predominantly fibrotic with scattered fragments of necrotic bone. Attestation: By this signature, I attest that I have personally formulated the final interpretation expressed in this report and that the above diagnosis is based upon my examination of the slides and/or other material indicated in this report. +++ +++ ning/01/12/2018 ############################## ############################## ############ Material Received: A: right femoral intermedullary reammings History: 27-year-old female with a history of chronic osteomyelitis of right femur Gross Description: A. Received in formalin labeled with patient's name and "right femoral intramedullary reaming's" are multiple fragments of brown-black bone that have an aggregate measurement of 2.8 x 2.8 x 0.9 cm. There are no grossly visible areas of necrosis. The specimen is submitted entirely in cassette A1 following decalcification. (ik) ik/01/12/2018 Performing Organization Address City/State/Zipcode Phone Number [facility] RESULTS * TEST-URINE (01/11/2018 12:30 PM) Urine-HCG NEG [facility] Specific [place] 1.019 MAIN LAB Specimen Urine - Urine Performing Organization Address City/[facility]/Zipcode Phone Number MAIN LAB [address] [place] [address] * CT LOWER EXTREM WO/W CONT RT (12/27/2017 2:41 PM) Impressions Performed At 1.Evidence of intramedullary nailing of a horizontal fracture the junction [facility] RES[facility] of the proximal third of the right femur without significant healing of the fracture. There is segmental bone loss along the posterior aspect of the fracture. 2.No evidence of osteomyelitis as per CT evaluation. If there is clinical concern for osteomyelitis then further evaluation with nuclear medicine tagged white blood cell scintigraphy could be performed. 3.Prominent heterotopic ossification within the deep soft tissues of the right thigh with heterotopic ossification bridging the fracture site medially. 4.Partially progressive healing of the posterior wall right acetabular fracture with persistent 3 mm articular surface gap. Approved by Rajesh Isbell MD on 12/27/2017 5:53 PM By my electronic signature, I attest that I have personally reviewed the images for this examination and formulated the interpretations and opinions expressed in this report Finalized by Bulmaro Palm M.D. on 12/27/2017 6:03 PM. Dictated by Rajesh Isbell MD on 12/27/2017 4:05 PM. Narrative Performed At EXAMINATION: CT of the right lower extremity without and with contrast. [facility] INDICATION: Chronic osteomyelitis, physeal fracture ofthe right femur with nonunion, unspecified by physeal fracture configuration, subsequent encounter. Pain in right femur. COMPARISON: Right femur radiographs, 12/20/2013. TECHNIQUE: Axial CT images of the right femur were obtained before and after the intravenous administration of 100 mL Omnipaque 350. Coronal and sagittal reformatted images were obtained and interpreted. Three-dimensional reconstructions were obtained with horizontal and cephalocaudad rotation. FINDINGS: An intramedullary nail is present within the right femur with a nondisplaced horizontal fracture at the junction of the proximal and middle thirds of the femoral diaphysis with loss of the posteromedial cortex of the femur over a craniocaudal dimension of 5.3 cm (series 300b, image 72). There is no significant healing of the fracture. The hardware is intact. There is prominent heterotopic ossification which bridges from proximal to distal medial to the fracture site. No cortical osteolysis. No evidence of periosteal reaction. No evidence of an involucrum or sequestrum. Obliquely oriented screws are noted projecting through the anterior and posterior columns of the right acetabulum. The hardware is intact. No bruna-hardware lucency is noted. Chronic appearing fracture with mild partial progressive healing of the posterior wall of the left acetabulum is present with 3 mm fracture gap undersurface less than 1 mm of articular surface step-off. The femoroacetabular joint is maintained. Partial visualization of the left superior and inferior pubic rami fractures. Linear soft tissue density is noted extending from the lateral aspect of the proximal femur without associated enhancement or rim-enhancing fluid collection. Skin thickening subcutaneous soft tissue reticulation is noted over the lateral aspect of the distal femur below the level of the fracture. No discrete soft tissue fluid collection is identified. A small right ovarian follicle is identified. There is a small amount of free fluid within the pelvis, likely physiologic. The remaining visualized intrapelvic contents are unremarkable. Procedure Note Interface, Radiant Results - 12/27/2017 6:06 PM CDT EXAMINATION: CT of the right lower extremity without and with contrast. INDICATION: Chronic osteomyelitis, physeal fracture of the right femur with nonunion, unspecified by physeal fracture configuration, subsequent encounter. Pain in right femur. COMPARISON: Right femur radiographs, 12/20/2013. TECHNIQUE: Axial CT images of the right femur were obtained before and after the intravenous administration of 100 mL Omnipaque 350. Coronal and sagittal reformatted images were obtained and interpreted. Three-dimensional reconstructions were obtained with horizontal and cephalocaudad rotation. FINDINGS: An intramedullary nail is present within the right femur with a nondisplaced horizontal fracture at the junction of the proximal and middle thirds of the femoral diaphysis with loss of the posteromedial cortex of the femur over a craniocaudal dimension of 5.3 cm (series 300b, image 72). There is no significant healing of the fracture. The hardware is intact. There is prominent heterotopic ossification which bridges from proximal to distal medial to the fracture site. No cortical osteolysis. No evidence of periosteal reaction. No evidence of an involucrum or sequestrum. Obliquely oriented screws are noted projecting through the anterior and posterior columns of the right acetabulum. The hardware is intact. No bruna- hardware lucency is noted. Chronic appearing fracture with mild partial progressive healing of the posterior wall of the left acetabulum is present with 3 mm fracture gap undersurface less than 1 mm of articular surface step- off. The femoroacetabular joint is maintained. Partial visualization of the left superior and inferior pubic rami fractures. Linear soft tissue density is noted extending from the lateral aspect of the proximal femur without associated enhancement or rim-enhancing fluid collection. Skin thickening subcutaneous soft tissue reticulation is noted over the lateral aspect of the distal femur below the level of the fracture. No discrete soft tissue fluid collection is identified. A small right ovarian follicle is identified. There is a small amount of free fluid within the pelvis, likely physiologic. The remaining visualized intrapelvic contents are unremarkable. IMPRESSION 1. Evidence of intramedullary nailing of a horizontal fracture the junction of the proximal third of the right femur without significant healing of the fracture. There is segmental bone loss along the posterior aspect of the fracture. 2. No evidence of osteomyelitis as per CT evaluation. If there is clinical concern for osteomyelitis then further evaluation with nuclear medicine tagged white blood cell scintigraphy could be performed. 3. Prominent heterotopic ossification within the deep soft tissues of the right thigh with heterotopic ossification bridging the fracture site medially. 4. Partially progressive healing of the posterior wall right acetabular fracture with persistent 3 mm articular surface gap. Approved by Rajesh Isbell MD on 12/27/2017 5:53 PM By my electronic signature, I attest that I have personally reviewed the images for this examination and formulated the interpretations and opinions expressed in this report Finalized by Bulmaro Palm M.D. on 12/27/2017 6:03 PM. Dictated by Rajesh Isbell MD on 12/27/2017 4:05 PM. Performing Organization Address City/[facility]/[employer] Phone Number RAD RESULTS * SED RATE (12/20/2017 1:07 PM) Sed Rate -ESR 8 0 - 20 MM/HR [facility] Specimen Blood Performing Organization Address City/[facility] Phone Number MAIN LAB [address] [place] [address] * CBC AND DIFF (12/20/2017 1:07 PM) White Blood Cells 10.7 4.5 - 11.0 K/UL [facility] RBC 5.57 (H) 4.0 - 5.0 M/UL [facility] Hemoglobin 12.3 12.0 - 15.0 GM/DL [facility] Hematocrit 38.7 36 - 45 % [facility] MCV 69.6 (L) 80 - 100 FL [facility] MCH 22.1 (L) 26 - 34 PG [facility] MCHC 31.8 (L) 32.0 - 36.0 G/DL [facility] RDW 18.7 (H) 11 - 15 % [facility] Platelet Count 264 150 - 400 K/UL [facility] MPV 8.8 7 - 11 FL [facility] Neutrophils 70 41 - 77 % [facility] Lymphocytes 22 (L) 24 - 44 % [facility] Monocytes 6 4 - 12 % [facility] Eosinophils 2 0 - 5 % [facility] Basophils 0 0 - 2 % [facility] Absolute Neutrophil Count 7.40 (H) 1.8 - 7.0 K/UL [facility] Absolute Lymph Count 2.40 1.0 - 4.8 K/UL [facility] Absolute Monocyte Count 0.60 0 - 0.80 K/UL [facility] Absolute Eosinophil Count 0.20 0 - 0.45 K/UL [facility] Absolute Basophil Count 0.00 0 - 0.20 K/UL [facility] Specimen Blood Performing Organization Address City/[facility]/Zipcode Phone Number [facility] [address] [place] [address] * C REACTIVE PROTEIN (CRP) (12/20/2017 1:07 PM) C-Reactive Protein 0.67 <1.0 MG/DL [facility] Specimen Blood Performing Organization Address [facility]/Zipcode Phone Number MAIN LAB [address] [place] [address] * COMPREHENSIVE METABOLIC PANEL (12/20/2017 1:07 PM) Sodium 141 137 - 147 MMOL/L [facility] Potassium 3.7 3.5 - 5.1 MMOL/L [facility] Chloride 110 98 - 110 MMOL/L [facility] Glucose 90 70 - 100 MG/DL [facility] Blood Urea Nitrogen 9 7 - 25 MG/DL [facility] Creatinine 0.61 0.4 - 1.00 MG/DL [facility] Calcium 9.2 8.5 - 10.6 MG/DL [facility] Total Protein 7.3 6.0 - 8.0 G/DL [facility] Total Bilirubin 0.3 0.3 - 1.2 MG/DL [facility] Albumin 4.3 3.5 - 5.0 G/DL [facility] Alk Phosphatase 115 (H) 25 - 110 U/L [facility] AST (SGOT) 14 7 - 40 U/L [facility] CO2 26 21 - 30 MMOL/L [facility] ALT (SGPT) 16 7 - 56 U/L [facility] Anion Gap 5 3 - 12 [facility] eGFR Non >60 >60 mL/min [facility] Comment: The eGFR is not validated for use in drug dosing adjustments.Continue to use estimated creatinine clearance per dosing reference text.Please contact the Clinical Pharmacist for questions. eGFR >60 >60 mL/min [facility] Comment: The eGFR is not validated for use in drug dosing adjustments.Continue to use estimated creatinine clearance per dosing reference text.Please contact the Clinical Pharmacist for questions. Specimen Blood Performing Organization Address City/State/Zipcode Phone Number [facility] [address] [place] [address] * FEMUR 2 VIEWS RIGHT (12/20/2017 12:17 PM) Impressions Performed At Impression: Fracture without solid osseous incorporation at the fracture site. [facility] RAD RESULTS This finding hypertrophic callus formation. These findings are of concern for hypertrophic nonunion. If clinically indicated this could be further evaluated with CT imaging. Finalized by Mg Beal M.D. on 12/20/2017 12:26 PM. Dictated by Mg Beal M.D. on 12/20/2017 12:16 PM. Narrative Performed At Right femur [facility] RAD RESULTS Clinic data: Right femur pain Four projections were acquired. No prior studies are available comparison. An intramedullary nail associated with the femur is in place. A transverse fracture the proximal diaphysis of the femur noted. Hypertrophic callus formation heterotopic ossification associated with the proximal middle diaphysis of the femur. There is no appreciable bony bridging at the transverse fracture site of the femur. Two fixation screws are identified associated with the right acetabulum. Bony alignment at the knee appears unremarkable. Is no evidence of joint effusion. Catheter overlies the lower abdomen consistent with a ventricular peritoneal shunt catheter. Procedure Note Interface, Radiant Results - 12/20/2017 12:29 PM CDT Right femur Clinic data: Right femur pain Four projections were acquired. No prior studies are available comparison. An intramedullary nail associated with the femur is in place. A transverse fracture the proximal diaphysis of the femur noted. Hypertrophic callus formation heterotopic ossification associated with the proximal middle diaphysis of the femur. There is no appreciable bony bridging at the transverse fracture site of the femur. Two fixation screws are identified associated with the right acetabulum. Bony alignment at the knee appears unremarkable. Is no evidence of joint effusion. Catheter overlies the lower abdomen consistent with a ventricular peritoneal shunt catheter. IMPRESSION Impression: Fracture without solid osseous incorporation at the fracture site. This finding hypertrophic callus formation. These findings are of concern for hypertrophic nonunion. If clinically indicated this could be further evaluated with CT imaging. Finalized by Mg Beal M.D. on 12/20/2017 12:26 PM. Dictated by Mg Beal M.D. on 12/20/2017 12:16 PM. Performing Organization Address City/State/Zipcode Phone Number [facility] RAD RESULTS * GENERAL RAD LOWER EXT EXTERNAL IMAGING (11/01/2017 1:10 PM) Narrative Performed At This order has been auto finalized and does not contain a result. from Last 3 Months
--- OUTSIDE RECORDS SUMMARY | 2018-01-20 19:49 | XMS REPORT | Encounter Summary ---
Author Author [facility] Organization [facility] Address Unknown Phone Unavailable Care Team Providers Care Cheesemaker Helper Name Role Phone Dany Sotelo MD Unavailable Dianna Collins Unavailable Unavailable Stephanie Whitfield MD PCP Reason for Visit * Auth/Cert Status Reason Specialty Diagnoses / Referred By Referred To Procedures Contact Contact Diagnoses Chronic osteomyelitis of right femur with draining sinus (HCC) Heterotopic ossification of bone Painful orthopaedic hardware (HCC) Chronic osteomyelitis of right femur with draining sinus (HCC) [M86.451] Heterotopic ossification of bone [M89.8X9] Painful orthopaedic hardware (HCC) [T84.84XA] P rocedures RI REMOVAL IMPLANT DEEP RI EXCISION/CURETTA GE CYST/TUMOR FEMUR RI DEBRIDEMENT MUSCLE & FASCIA 20 SQ CM/< RI INSJ NON-BIODEGRADABL E DRUG DELIVERY IMPLANT REMOVAL HARDWARE -DEEP-LOWER EXTREMITY EXCISION/ CURETTAGE BONE CYST/ BENIGN TUMOR OF FEMUR DEBRIDEMENT WOUND MEDIUM 20 SQ CM OR LESS - LOWER EXTREMITY POSSIBLE INSERTION NON-BIODEGRADABL E DRUG DELIVERY IMPLANT-ANTIBIOT IC GABBY-FEMUR Encounter Details Date Type Department Care Team Description 01/11/2018 Hospital [facility] Talib Conde MD Encounter Hospital Radiology [address] [facility] [address] [place] [address] [address] [facility] [phone] [place] [address] [phone] Social History Tobacco Use Types Packs/Day Years Used Date Current Every Day Smoker Cigarettes 0.5 5 Smokeless Tobacco: Never Used Alcohol Use Drinks/Week oz/Week Comments No Sex Assigned at Date Recorded Not on file as of this encounter Medications at Time of Discharge Medication Sig. Disp. Refills Start Date End Date acetaminophen SR(+) Take 650 mg by mouth (TYLENOL) 650 mg tablet every 6 hours as needed for Pain. aspirin 325 mg tablet Take one tablet by mouth 21 tablet 0 01/16/2018 daily. Take with food. gabapentin (NEURONTIN) Take 600 mg by mouth 600 mg tablet three times daily. morphine SR (MS CONTIN; Take 15 mg by mouth every ORAMORPH SR) 15 mg tablet 12 hours oxyCODONE/acetaminophen Take one tablet to two 40 tablet 0 01/16/2018 (PERCOCET; ENDOCET) tablets by mouth every 4 10/325 mg tablet hours as needed for Pain piperacillin/tazobactam Administer 18g q 24 hours 01/16/2018 (ZOSYN) 4.5 g/100 mL continuous. Estimated iso-osmotic IVPB duration 6-8 weeks. Exact duration per ID senna/docusate (SENNA Take two tablets by mouth 90 tablet 1 2017 WITH DOCUSATE SODIUM) twice daily. Hold for 8.6/50 mg tablet loose stools. Take while on narcotic pain medication tiZANidine (ZANAFLEX) 2 Take one tablet by mouth 40 tablet 0 2017 mg tabletIndications: every 8 hours as needed. Muscle Spasm ciprofloxacin (CIPRO) 500 Take 500 mg by mouth 01/16/2018 mg tablet twice daily. ibuprofen/diphenhydramine Take 2 tablets by mouth 01/16/2018 cit (IBUPROFEN PM PO) at bedtime as needed. methocarbamol (ROBAXIN) Take 500 mg by mouth 01/16/2018 500 mg tablet three times daily. oxyCODONE/acetaminophen Take 1 tablet by mouth 01/16/2018 (PERCOCET; ENDOCET) every 6 hours as needed 10/325 mg tablet for Pain as of this encounter Plan of Treatment Not on fileas of this encounter Visit Diagnoses Not on filein this encounter
--- OUTSIDE RECORDS SUMMARY | 2018-01-20 19:49 | XMS REPORT | Encounter Summary ---
Author Author [facility] Organization [facility] Address Unknown Phone Unavailable Care Team Providers Care Dramatic Director Name Role Phone Dany Sotelo MD Unavailable Dianna Collins Unavailable Unavailable Stephanie Whitfield MD PCP Encounter Details Date Type Department Care Team Description 01/11/2018 Procedure Pass [facility] Operating [facility] [address] [place] [address] Social History Tobacco Use Types Packs/Day Years Used Date Current Every Day Smoker Cigarettes 0.5 5 Smokeless Tobacco: Never Used Alcohol Use Drinks/Week oz/Week Comments No Sex Assigned at Date Recorded Not on file as of this encounter Plan of Treatment Not on fileas of this encounter Visit Diagnoses Not on filein this encounter
--- OUTSIDE RECORDS SUMMARY | 2018-01-20 19:49 | XMS REPORT | Encounter Summary ---
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 [facility]. Patient ride is 2 hours away. -Spoke with patient's PCP's office Dr. Whitfield [phone] and verified she will follow . -Spoke to [facility] [phone] and notified them of d/c today. -Faxed signed orders and clinicals with facesheet to [facility] and [facility]. Also faxed updated clinicals to Dr. Whitfield's office. Interventions ? Support Support: Pt/Family Updates re:POC or DC Plan ? Info or Referral ? Discharge Planning Discharge Planning: Home Health, Home Lsgmlnfe-Usrvumr-XLL ? Medication Needs ? Financial ? Legal ? Other Disposition ? Expected Discharge Date Expected Discharge Date: 01/16/18 ? Transportation Does the patient need discharge transport arranged?: No Transportation Name, Phone and Availability #1: Spouse Does the patient use Medicaid Transportation?: No ? Next Level of Care (Acute Psych discharges only) ? Discharge Disposition Durable Medical Equipment No service has been selected for the patient. [facility] Dest[facility] No service has been selected for the patient. Home Care No service has been selected for the patient. Dialysis/Infusion No service has been selected for the patient. Jace Jimenez RN, [facility] Integrated Metal Bending Machine Operator *[id number] * Operative Report (DICTATED ONLY) - Ashok Talbert MD - 01/16/2018 6:46 AM CDT THE [address] [id number] PATIENT NAME: THIAGO CATES MR#/PT#: [id number] Page 2 OPERATIVE REPORT DATE OF OPERATION: 01/11/2018 SURGEON: Ashok Talbert MD SLOT FLOORMAN(S): Pj Rascon MD PREOPERATIVE DIAGNOSIS: 1. Heterotopic ossification, right thigh. 2. Draining sinus, right lower extremity. 3. Osteomyelitis of the right femur. POSTOPERATIVE DIAGNOSIS: same OPERATIVE PROCEDURE: 1. Excision of sinus tract/wound, right femur, less than 20 sq cm down to the level of bone. 2. Removal of heterotopic ossification from the right thigh, extensive. 3. Deep implant removal from the right femur. 4. Debridement of osteomyelitis of right femur with removal of bone. 5. Placement of nonbiodegradable antibiotic delivery device to the right femur. 6. Use and interpretation of intraoperative fluoroscopy. ANESTHESIA: General endotracheal. INDICATIONS FOR OPERATIVE PROCEDURE: Ms. Cates is a 27-year-old female, who has severe injury to her right lower extremity. This was initially treated in [place]. She has had difficulty with infection. She has been off antibiotics for approximately 2-3 weeks at this point in time. She has had a previous Pseudomonas infection. She has developed a draining sinus on the posterolateral aspect of the thigh. She also has significant leg length discrepancy. I have discussed treatment of her injury. I have recommended doing this in a staged fashion with the first surgery aimed at treating her infection. She voiced her understanding and wished to proceed with the above procedure. DESCRIPTION AND FINDINGS OF OPERATIVE PROCEDURE: After obtaining informed consent, marking of correct surgical site and confirmation of correct patient, the patient was taken to the operating theater. She was transferred from the cart to the table. Anesthesia was induced via the general route. The right lower extremity was positioned with bone foam positioners. The right lower extremity was prepped and draped in normal sterile fashion for a case of this nature. Preoperative antibiotics were administered and a time-out was performed. I then excised the sinus tract over the posterolateral aspect of the leg. I took this down to bone. This went down to a spike of heterotopic ossification. I then extended the incision proximally and distally to the skin and fascia. I removed the large areas of heterotopic ossification from the lateral and posterior aspects of the femur. There was quite extensive heterotopic ossification that was removed. I then was able to expose the proximal interlocks through this. I removed these. I then made an incision distally and I exposed the distal interlocks. I then made an incision proximally over the previous surgical scar for the insertion of the nail. I was able to place a guidepin into the nail. I used an opening reamer to come down on the nail. I then placed an extraction bolt within the proximal aspect of the nail. I then removed the distal interlocks and I removed the femoral nail. I then passed a ball-tip guide gabby and I reamed the intramedullary canal. I then took these reamings and sent these for Gram stain and culture. I extensively reamed the canal to debride any potential osteomyelitis from the femur. The wounds were copiously irrigated. Please note , I did go through 1 of the distal interlocks prior to reaming the intramedullary canal of the femur. I then fashioned an antibiotic nail with a ball-tip guide gabby in a 40-Telugu chest tube. This was done with medium- viscosity polymethylmethacrylate, gentamicin, and vancomycin. Once this was made on the back table, it was inserted into the intramedullary canal of the femur. I confirmed its position on C-arm image in the AP and lateral views. Both were appropriate. The wounds were copiously irrigated. Hemostasis was obtained. They were closed in typical layered fashion with 3-0 nylon and Dermabond being used for the skin. Normal sterile dressings were applied. Sponge and instrument counts were reported as correct. Drapes were removed. The patient was awakened from anesthesia without difficulty and transferred from the cart to the recovery room in stable condition. ESTIMATED BLOOD LOSS: Approximately 500 mL. SPECIMENS REMOVED: Tissue and intramedullary reamings from the right femur sent for Gram stain and culture. COMPLICATIONS: None. DRAINS: None. Ashok Talbert MD MT / MEDQ /[id number] cc: - Ashok Talbert MD * Case Mgmt DC Esther - Jessica Lemon - 01/15/2018 1:30 PM CDT Formatting of this note may be different from the original. Case Management Progress Note NAME:Thiago Cates :1990 AGE: 27 y.o. ADMISSION DATE: 01/11/2018 DAYS ADMITTED: LOS: 4 days Todays Date: 01/15/2018 Plan Anticipate pt discharging home with HH, IV abx, and family assistance. Yovani reviewed EMR and met with the team. Interventions ? Support Support: Pt/Family Updates re:POC or DC Plan Sw met with pt at bedside. Pt stated that she is borrowing a commode from her step-mother. Pt stated that her parents will be helping her and bringing food daily. Pt stated she does not have any concerns regarding discharging home. ? Info or Referral ? Discharge Planning Discharge Planning: Home Health, Home Mexhhvme-Aeidzwy-CAQ Yovani updated team on pt's family assistance at home. ? Medication Needs ? Financial ? Legal ? Other Disposition ? Expected Discharge Date Expected Discharge Date: 01/16/18 ? Transportation Does the patient need discharge transport arranged?: No Transportation Name, Phone and Availability #1: Spouse Does the patient use Medicaid Transportation?: No ? Next Level of Care (Acute Psych discharges only) ? Discharge Disposition Durable Medical Equipment No service has been selected for the patient. [facility] Dest[facility] No service has been selected for the patient. Home Care No service has been selected for the patient. Dialysis/Infusion No service has been selected for the patient. Jessica Lemon, [facility] *[phone] * Case Mgmt DC Plan - Rama Guallpa RN - 01/12/2018 12:31 PM CDT Formatting of this note may be different from the original. Case Management Progress Note NAME:Thiago Cates :1990 AGE: 27 y.o. ADMISSION DATE: 01/11/2018 DAYS ADMITTED: LOS: 1 day Todays Date: 01/12/2018 Plan DC planning- Possible HH and IVabx Interventions ? Support ? Info or Referral ? Discharge Planning Discharge Planning: Home Health, Home Hueqtopi-Meddqqy-NPV-NC spoke with patient this am about DC planning. Pt has had HH and IV abx before in [place]. Pt just recently moved to [facility]. NCM discussed IV abx agencies, Pt prefers [facility], NCM sent referral for benefit check and referral to [facility] for HH. [facility] will place pt on weekend report for NCM to follow up on ID plan. ? Medication Needs ? Financial ? Legal ? Other Disposition ? Expected Discharge Date Expected Discharge Date: 01/15/18 ? Transportation Does the patient need discharge transport arranged?: No Transportation Name, Phone and Availability #1: Spouse Does the patient use Medicaid Transportation?: No ? Next Level of Care (Acute Psych discharges only) ? Discharge Disposition Durable Medical Equipment No service has been selected for the patient. [facility] Dest[facility] No service has been selected for the patient. [facility] Home Care No service has been selected for the patient. [facility] Dialysis/Infusion No service has been selected for the patient. Case Management Admission Assessment NAME:Thiago Cates :1990 AGE: 27 y.o. ADMISSION DATE: 01/11/2018 DAYS ADMITTED: LOS: 1 day Todays Date: 01/12/2018 Source of Information:Patient Plan Plan: CM Assessment, Assist PRN with SW/NCM Services, Discharge Planning for Home Anticipated Patient Address/Phone [address] [place] [address] (home) Emergency Contact Extended Emergency Contact Information Primary Emergency Contact: Von Joe Address: [address] [place] [address] Relation: Relative Secondary Emergency Contact: Myra Joe Address: [address] [place] [address] Relation: Relative Healthcare Directive Healthcare Directive: No, patient does not have a healthcare directive Transportation Does the patient need discharge transport arranged?: No Transportation Name, Phone and Availability #1: Spouse Does the patient use Medicaid Transportation?: No Expected Discharge Date Expected Discharge Date: 01/15/18 Living Situation Prior to Admission ? Living Arrangements Type of Residence: Home, independent Living Arrangements: Spouse/significant other Bathroom Shower / Tub: Tub/Shower Unit How many levels in the residence?: 1 Can patient live on one level if needed?: Yes Does residence have entry and/or side stairs?: Yes (5 entry stairs, bed/bath main level) Assistance needed prior to admit or anticipated on discharge: No Who provides assistance or could if needed?: Spouse, family Are they in good health?: Yes Can support system provide 24/7 care if needed?: Yes ? Level of Function Prior level of function: Independent ? Cognitive Abilities Cognitive Abilities: Alert and Oriented Financial Resources ? Coverage Primary Insurance: Commercial insurance Secondary Insurance: Medicaid Additional Coverage: RX ([facility]) ? Source of Income Source Of Income: Unemployed ? Financial Assistance Needed? Psychosocial Needs ? Mental Health Mental Health History: No ? Substance Use History Substance Use History Screen: No ? Other Current/Previous Services ? PCP Juanita Whitfield, , ? Pharmacy [facility] #[id number] [facility] [address] [facility] [id number] ? Durable Medical Equipment Durable Medical Equipment at home: Roller Walker, Single Point Cane, Wheelchair (manual) ? Home Health Receiving home health: In the past Agency name: In [place] Would patient use this agency again?: No ? Hemodialysis or Peritoneal Dialysis Undergoing hemodialysis or peritoneal dialysis: No ? Tube/Enteral Feeds Receive tube/enteral feeds: No ? Infusion Receive infusions: In the past Infusion company: IN [place] Would patient use this agency again?: No ? Private Duty Private duty help used: No ? Home and Community Based Services Home and community based services: No ? Rich Morse: N/A ? Hospice Hospice: No ? Outpatient Therapy PT: No OT: No CONTROLS DESIGNER: No ? Nursing Home Facility/Alf SNF: No NH: No ? Inpatient Rehab IPR: In the past Name of Facility: In [place] Would patient return for future services?: No ? Long-Term Acute Care Hospital LTACH: No ? Acute Hospital Stay Acute Hospital Stay: In the past Was patient's stay within the last 30 days?: No RUSLAN Mcmanus, manager event Metal Bending Machine Operator [id number] * Anesthesia Post Op Day 1 - Camilla Bailey SRNA - 01/12/2018 10:27 AM CDT Formatting of this note may be different from the original. Anesthesia Follow-Up Evaluation: Post-Procedure Day One Name: Thiago Cates : 1990 Age: 27 y.o. Sex: female Procedure Date: 01/11/2018 Procedure: Procedure(s) with comments: REMOVAL HARDWARE -DEEP-LOWER EXTREMITY. RIGHT INTRAMEDULLARY REAMINGS. - CASE LENGTH 1.5 HOURS, JOSE TABLE, ABX IN OR, C-ARM, <500 EBL EXCISION/ CURETTAGE BONE CYST/ BENIGN TUMOR OF FEMUR DEBRIDEMENT WOUND MEDIUM 20 SQ CM OR LESS - LOWER EXTREMITY INSERTION ANTIBIOTIC NAIL RIGHT FEMUR Physical Assessment Height: 177.8 cm (70") Weight: 90.8 kg (200 lb 2.8 oz) Vital Signs (Last Filed in 24 hours) BP: 97/59 (01/13 1008) Temp: 37.2 C (98.9 F) (01/13 1008) Pulse: 90 (01/13 1008) Respirations: 16 PER MINUTE (01/13 1008) SpO2: 94 % (01/13 1008) O2 Delivery: None (Room Air) (01/13 1008) SpO2 Pulse: 78 (01/11 2035) Height: 177.8 cm (70") (01/12 1236) Patient History Allergies Allergies Allergen Reactions Codeine RASH Medications Scheduled Meds: acetaminophen (TYLENOL) tablet 650 mg 650 mg Oral Q6H* Or acetaminophen (TYLENOL) rectal suppository 650 mg 650 mg Rectal Q6H* docusate (COLACE) capsule 100 mg 100 mg Oral BID(-) enoxaparin (LOVENOX) syringe 40 mg 40 mg Subcutaneous QDAY() piperacillin/tazobactam (ZOSYN) 3.375 g/50 mL iso-osmotic IVPB 3.375 g Intravenous Q6H* vancomycin (VANCOCIN) 1,250 mg in dextrose 5% (D5W) IVPB 15 mg/kg Intravenous Q8H* Continuous Infusions: lactated ringers infusion 1,000 mL (01/11/18 1900) PRN and Respiratory Meds:albuterol Q4H PRN, bisacodyl QDAY PRN, diphenhydrAMINE Q6H PRN OR diphenhydrAMINE Q6H PRN, fentaNYL citrate PF Q1H PRN, ondansetron (ZOFRAN) IV Q6H PRN, oxyCODONE Q3H PRN, vancomycin IVPB Q8H* AND vancomycin, pharmacy to manage Per Pharmacy Diagnostic Tests Hematology: Lab Results Component Value Date HGB 9.4 01/12/2018 HCT 28.5 01/12/2018 PLTCT 284 01/12/2018 WBC 10.7 01/12/2018 NEUT 70 12/20/2017 ANC 7.40 12/20/2017 ALC 2.40 12/20/2017 JACINTA 6 12/20/2017 AMC 0.60 12/20/2017 EOSA 2 12/20/2017 ABC 0.00 12/20/2017 MCV 70.2 01/12/2018 MCH 23.2 01/12/2018 MCHC 33.0 01/12/2018 MPV 8.7 01/12/2018 RDW 19.4 01/12/2018 General Chemistry: Lab Results Component Value Date NA 141 01/12/2018 K 3.6 01/12/2018 CL 107 01/12/2018 CO2 28 01/12/2018 GAP 6 01/12/2018 BUN 9 01/12/2018 CR 0.62 01/12/2018 GLU 118 01/12/2018 CA 8.2 01/12/2018 ALBUMIN 4.3 12/20/2017 OBSCA 1.20 04/15/2011 MG 1.8 04/17/2011 TOTBILI 0.3 12/20/2017 PO4 4.2 04/17/2011 Coagulation: Lab Results Component Value Date PTT 25.3 04/15/2011 INR 1.1 04/15/2011 Follow-Up Assessment Patient location during evaluation: floor Anesthetic Complications: Anesthetic complications: The patient did not experience any anesthestic complications. Pain: Score: 9 Management:inadequate Level of Consciousness: awake and alert Hydration:acceptable Airway Patency: patent Respiratory Status: acceptable and room air Cardiovascular Status:acceptable Regional/Neuroaxial: Comments: Talked with patient's nurse and they are working on her pain management. * Patient Education - Nicole Abernathy RN - 01/12/2018 6:27 AM CDT This RN initiated education binder and left at patient's bedside for review with day RN. lachelle Gamble * Procedures (Immed Post or Bedside) - Pj Rascon MD - 01/11/2018 6:16 PM CDT Formatting of this note may be different from the original. Brief Operative Note Name: Thiago Cates is a 27 y.o. female : 1990 DATE OF OPERATION: 01/11/2018 Date: 01/11/2018 Preoperative Dx: Chronic osteomyelitis of right femur with draining sinus (HCC) [M86.451] Heterotopic ossification of bone [M89.8X9] Painful orthopaedic hardware (HCC) [T84.84XA] Post-op Diagnosis * Chronic osteomyelitis of right femur with draining sinus (HCC) [M86.451] * Heterotopic ossification of bone [M89.8X9] * Painful orthopaedic hardware (HCC) [T84.84XA] Procedure(s) (LRB): REMOVAL HARDWARE -DEEP-LOWER EXTREMITY. RIGHT INTRAMEDULLARY REAMINGS. (Right) EXCISION/ CURETTAGE BONE CYST/ BENIGN TUMOR OF FEMUR (Right) DEBRIDEMENT WOUND MEDIUM 20 SQ CM OR LESS - LOWER EXTREMITY (Right) INSERTION ANTIBIOTIC NAIL RIGHT FEMUR (Right) Anesthesia Type: Defer to Anesthesia Surgeon(s) and Role: * Pj Rascon MD - Resident - Assisting * Ashok Talbert MD - Primary Findings: HO Estimated Blood Loss: 200 ml Specimen(s) Removed/Disposition: ID Type Source Tests Collected by Time Destination 1 : RIGHT FEMORAL INTERMIDULLARY REAMINGS FOR ROUTINE Tissue Femur SURGICAL PATHOLOGY Ashok Talbert MD 01/11/2018 1650 Complications: None Implants: abx nail Drains: None Disposition: PACU - stable Pj Rascon MD Pager in this encounter Plan of Treatment Name Priority Associated Diagnoses Date/Time POC ANES US GUIDED NERVE BLOCK Routine 01/11/2018 7:33 AM CDT POC ANES US GUIDED NERVE BLOCK Routine 01/11/2018 7:02 PM CDT Name Priority Associated Diagnoses Order Schedule POC ANES US GUIDED NERVE BLOCK Routine ONE TIME for 1 Occurrences starting 01/11/2018 until 01/11/2018 SURGICAL PATHOLOGY Routine Chronic osteomyelitis of ONCE for 1 Occurrences right femur with draining starting 01/11/2018 sinus (HCC) Heterotopic ossification of bone Painful orthopaedic hardware (HCC) POC ANES US GUIDED NERVE BLOCK Routine ONE TIME for 1 Occurrences starting 01/11/2018 until 01/11/2018 as of this encounter Procedures Procedure Name Priority Date/Time Associated Diagnosis Comments CBC Routine 01/16/2018 Results for this 4:00 [...] THERAPY TEAM Routine 01/12/2018 1:04 PM CDT CBC Routine 01/12/2018 Results for this 4:31 AM CDT procedure are in the results section. BASIC METABOLIC PANEL Routine 01/12/2018 Results for [...] results section. in this encounter Results * CBC (01/16/2018 4:00 AM) White Blood Cells 7.0 4.5 - 11.0 K/UL [facility] RBC 3.49 (L) 4.0 - 5.0 M/UL [facility] Hemoglobin 8.1 (L) 12.0 - 15.0 GM/DL [facility] Hematocrit 24.7 (L) 36 - 45 % [facility] MCV 70.6 (L) 80 - 100 FL [facility] MCH 23.1 (L) 26 - 34 PG [facility] MCHC 32.6 32.0 - 36.0 G/DL [facility] RDW 18.9 (H) 11 - 15 % [facility] Platelet Count 284 150 - 400 K/UL [facility] MPV 7.7 7 - 11 FL [facility] Specimen Blood Performing Organization Address City/[facility]/Zipcode Phone Number MAIN LAB [address] [place] [address] * BLOOD GASES, CENTRAL VENOUS (01/15/2018 6:11 [...] MMOL/L [facility] Performing Organization Address [facility] Phone Number [facility] [address] [place] [address] * LINE [facility] 1V CXR (01/15/2018 5:51 PM) Impressions Performed [...] 01/15/2018 5:53 PM. Narrative Performed At LINE [facility] 1V CXR [facility] RAD RESULTS History: PICC line placement. Comparison: Chest radiograph April 16, 2011 Findings: [employer] OPERATOR shunt catheter remains in place tracking from the right lower neck below the diaphragm with the tip not [id number]. Left PICC is in place which does [...] Results - 01/15/2018 6:06 PM CDT LINE [facility] 1V CXR History: PICC line placement. Comparison: Chest radiograph April 16, 2011 Findings: CAR[employer] OPERATOR shunt catheter remains in place tracking from the right lower neck below the diaphragm with the tip not [id number]. Left PICC is in place which does [...] expressed in this report Finalized by Joby iWllis M.D. on 01/15/2018 6:03 PM. Dictated by Artis Pedro M.D. on 01/15/2018 5:53 PM. Performing Organization Address City/State/Zipcode Phone Number [facility] RESULTS * CBC (01/15/2018 4:03 AM) White Blood Cells 8.9 4.5 - 11.0 K/UL [facility] RBC 3.89 (L) 4.0 - 5.0 M/UL [facility] Hemoglobin 9.1 (L) 12.0 - 15.0 GM/DL [facility] Hematocrit 27.5 (L) 36 - 45 % [facility] MCV 70.7 (L) 80 - 100 FL [facility] MCH 23.4 (L) 26 - 34 PG [facility] MCHC 33.1 32.0 - 36.0 G/DL [facility] RDW 19.4 (H) 11 - 15 % [facility] Platelet Count 286 150 - 400 K/UL [facility] MPV 8.4 7 - 11 FL [facility] Specimen Blood Performing Organization Address City/[facility] Phone Number [facility] [address] [place] [address] * CBC (01/14/2018 4:25 AM) White Blood Cells 10.2 4.5 - 11.0 K/UL [facility] RBC 3.98 (L) 4.0 - 5.0 M/UL [facility] Hemoglobin 9.3 (L) 12.0 - 15.0 GM/DL [facility] Hematocrit 28.0 (L) 36 - 45 % [facility] MCV 70.5 (L) 80 - 100 FL [facility] MCH 23.3 (L) 26 - 34 PG [facility] MCHC 33.0 32.0 - 36.0 G/DL [facility] RDW 19.8 (H) 11 - 15 % [facility] Platelet Count 263 150 - 400 K/UL [facility] MPV 8.1 7 - 11 FL [facility] Specimen Blood Performing Organization Address City/[facility] Phone Number [facility] [address] [place] [address] * BASIC METABOLIC PANEL (01/14/2018 4:25 AM) Sodium 140 137 - 147 MMOL/L [facility] Potassium 3.6 3.5 - 5.1 [...] for questions. Specimen Blood Performing Organization Address City/[facility]/Zipcode Phone Number MAIN LAB [address] [place] [address] * CBC (01/13/2018 5:00 AM) White Blood Cells 9.0 4.5 - 11.0 K/UL [facility] RBC 3.96 (L) 4.0 - 5.0 M/UL [facility] Hemoglobin 9.2 (L) 12.0 - 15.0 GM/DL [facility] Hematocrit 27.9 (L) 36 - 45 % [facility] MCV 70.6 (L) 80 - 100 FL [facility] MCH 23.2 (L) 26 - 34 PG [facility] MCHC 32.9 32.0 - 36.0 G/DL [facility] RDW 19.4 (H) 11 - 15 % [facility] Platelet Count 233 150 - 400 K/UL [facility] MPV 8.0 7 - 11 FL [facility] Specimen Blood Performing Organization Address City/[facility]/Zipcode Phone Number MAIN LAB [address] [place] [phone] * BASIC METABOLIC PANEL (01/13/2018 5:00 AM) Sodium 141 137 - 147 MMOL/L [facility] Potassium 3.4 (L) 3.5 - 5.1 MMOL/L [facility] Chloride 107 98 - 110 MMOL/L [facility] CO2 29 21 - 30 MMOL/L [facility] Anion Gap 5 3 - 12 [facility] Glucose 119 (H) 70 - 100 MG/DL [facility] Blood Urea Nitrogen 5 (L) 7 - 25 MG/DL [facility] Creatinine 0.59 0.4 - 1.00 MG/DL [facility] Calcium 8.2 (L) 8.5 - 10.6 MG/DL [facility] MAIN [...] for questions. Specimen Blood Performing Organization Address City/[facility]/Zipcode Phone Number MAIN LAB [address] [place] [address] * CBC (01/12/2018 4:31 AM) White Blood Cells 10.7 4.5 - 11.0 K/UL [facility] RBC 4.05 4.0 - 5.0 M/UL [facility] Hemoglobin 9.4 (L) 12.0 - 15.0 GM/DL [facility] Hematocrit 28.5 (L) 36 - 45 % [facility] MCV 70.2 (L) 80 - 100 FL [facility] MCH 23.2 (L) 26 - 34 PG [facility] MCHC 33.0 32.0 - 36.0 G/DL [facility] RDW 19.4 (H) 11 - 15 % [facility] Platelet Count 284 150 - 400 K/UL [facility] MPV 8.7 7 - 11 FL [facility] Specimen Blood Performing Organization Address City/[facility]/Zipcode Phone Number MAIN LAB [address] [place] [address] * BASIC METABOLIC PANEL (01/12/2018 4:31 AM) Sodium 141 137 - 147 MMOL/L [facility] Potassium 3.6 3.5 - 5.1 MMOL/L [facility] Chloride 107 98 - 110 MMOL/L [facility] CO2 28 21 - 30 MMOL/L [facility] Anion Gap 6 3 - 12 [facility] Glucose 118 (H) 70 - 100 MG/DL [facility] Blood Urea Nitrogen 9 7 - 25 MG/DL [facility] Creatinine 0.62 0.4 - 1.00 MG/DL [facility] Calcium 8.2 (L) 8.5 - 10.6 MG/DL [facility] MAIN [...] Blood Performing Organization Address City/State/Zipcode Phone Number MAIN LAB [address] [place] [address] * FLU[place]O MOBILE IN [place] (01/11/2018 5:23 PM) Narrative Performed At This order has been auto finalized and does not contain a result. [facility] Performing Organization Address City/State/Zipcode Phone Number [facility] * SURGICAL PATHOLOGY (01/11/2018 5:03 PM) PATHOLOGY REPORT [facility] RESULTS [email or web address] Department of Pathology and Laboratory Medicine [address] [place] [address] Surgical Pathology Office:[phone] :[phone] SURGICAL PATHOLOGY REPORT NAME: THIAGO CATES SURG PATH #: [id number] MR #: [id number] SPECIMEN CLASS: SR BILLING #: [id number] ALT ID #:LOCATION: [id number] DATE OF PROCEDURE: [...] material indicated in this report. +++ +++ ksw/01/12/2018 ############################## ############################## ############ Material Received: A: right [...] ik/01/12/2018 Performing Organization Address City/State/Zipcode Phone Number LAB RESULTS * TEST-URINE (01/11/2018 12:30 PM) Urine-HCG NEG [facility] MAIN [facility] Specific [place] 1.019 MAIN LAB Specimen Urine - Urine Performing Organization Address City/State/Zipcode Phone Number MAIN LAB [address] [place] [address] in this encounter Visit Diagnoses Diagnosis Chronic osteomyelitis of right femur with draining sinus (HCC) - Primary Chronic osteomyelitis, pelvic region and thigh Heterotopic ossification of bone Other disorders of bone and cartilage Painful orthopaedic hardware (HCC) Other complications due to other internal orthopedic device, implant, and graft Osteomyelitis (HCC) Unspecified osteomyelitis, site unspecified Chronic pain Other chronic pain Admitting Diagnoses Diagnosis Chronic osteomyelitis of right femur with draining sinus (HCC) - Chronic osteomyelitis of right femur with draining sinus (HCC) [M86.451] Chronic osteomyelitis, pelvic region and thigh Heterotopic ossification of bone - Heterotopic ossification of bone [M89.8X9] Other disorders of bone and cartilage Painful orthopaedic hardware (HCC) - Painful orthopaedic hardware (HCC) [ T84.84XA] Other complications due to other internal orthopedic device, implant, and graft Osteomyelitis (HCC) Unspecified osteomyelitis, site unspecified Administered Medications Medication Order MAR Action Action Date Dose Rate Site acetaminophen (TYLENOL) rectal suppository 650 mg 650 mg, Rectal, EVERY 6 HOURS, First dose on Viki 01/11/18 at 2200, Until Discontinued, Acetaminophen not to exceed 4g per 24 hours from all sources. acetaminophen (TYLENOL) tablet 650 mg Given 01/15/2018 650 mg 650 mg, Oral, EVERY 6 HOURS, First dose 22:00 CDT on Viki 01/11/18 at 2200, Until Discontinued, Acetaminophen not to exceed 4g per 24 hours from all sources. Given 01/16/2018 650 mg 04:00 CDT Given 01/16/2018 650 mg 10:27 CDT albuterol (PROAIR HFA, VENTOLIN HFA, or Given 01/14/2018 2 puffs PROVENTIL HFA) inhaler 2 puff 17:40 CDT 2 puff, Inhalation, RT EVERY 4 HOURS PRN, Starting Mon01/12/18 at 0417, Until Mon01/15/18 at 1136, RT PROTOCOL, When administered by RT, will be per RT policy. Given 01/14/2018 2 puffs 20:31 CDT Given 01/15/2018 2 puffs 08:30 CDT albuterol 0.083% (PROVENTIL; VENTOLIN) Given 01/15/2018 2.5 mg nebulizer solution 2.5 mg 18:49 CDT 2.5 mg, Inhalation, RT TWICE DAILY AND PRN, First dose on Mon01/15/18 at 1800, Until Discontinued, When administered by RT, will be per RT policy. Given 01/16/2018 2.5 mg 05:45 CDT cyclobenzaprine (FLEXERIL) tablet 10 mg Given 01/13/2018 10 mg 10 mg, Oral, TWICE DAILY, First dose on 08:23 CDT Mon01/12/18 at 1245, Until Discontinued Given 01/13/2018 10 mg 21:47 CDT Given 01/14/2018 10 mg 08:02 CDT diazePAM (VALIUM) tablet 2.5-5 mg Given 01/14/2018 5 mg 2.5-5 mg, Oral, EVERY 6 HOURS PRN, 20:04 CDT Starting Mon01/14/18 at 0914, Until Mon01/15/18 at 1306, Anxiety PO, Spasms Given 01/15/2018 5 mg 02:05 CDT Given 01/15/2018 5 mg 10:43 CDT diphenhydrAMINE (BENADRYL) capsule 25 mg Given 01/12/2018 25 mg 25 mg, Oral, EVERY 6 HOURS PRN, 13:00 CDT Starting Viki 01/11/18 at 2117, Until Mon01/16/18 at 1655, Insomnia, Itching PO diphenhydrAMINE (BENADRYL) injection 25 Given 01/12/2018 25 mg mg 02:07 CDT 25 mg, Intravenous, EVERY 6 HOURS PRN, Starting Viki 01/11/18 at 2117, Until Mon01/16/18 at 1655, Insomnia, Itching Injectable diphenhydrAMINE (BENADRYL) injection 25 Given 01/12/2018 25 mg mg 05:42 CDT 25 mg, Intravenous, ONCE, 1 dose, Mon01/12/18 at 0530 docusate (COLACE) capsule 100 mg Given 01/15/2018 100 mg 100 mg, Oral, TWICE DAILY, First dose on 08:09 CDT Mon01/12/18 at 0900, Until Discontinued, Hold for loose stools Given 01/15/2018 100 mg 16:17 CDT Given 01/16/2018 100 mg 08:10 CDT enoxaparin (LOVENOX) syringe 40 mg Given 01/13/2018 40 mg Abdominal 40 mg, Subcutaneous, DAILY, First dose 21:47 CDT Tissue on Mon01/12/18 at 2100, Until Discontinued, For patients undergoing surgery: Consult physician in advance -- enoxaparin is an anticoagulant and may need to be held for 12hr prior to surgery or invasive procedures. NOTE: This is a HIGH ALERT Medication. Given 01/14/2018 40 mg Abdomen:RLQ 20:01 CDT Given 01/15/2018 40 mg Abdomen:LLQ 22:00 CDT fentaNYL citrate PF (SUBLIMAZE) Given 01/14/2018 25 mcg injection 25-50 mcg 15:20 CDT 25-50 mcg, Intravenous, EVERY 1 HOUR PRN, Starting Viki 01/11/18 at 2117, Until Mon01/15/18 at 0001, Pain Injectable, Begin once PNC/[employer]OR OF [employer]CIAL [employer]ID has been discontinued. Given 01/14/2018 50 mcg 20:01 CDT Given 01/14/2018 50 mcg 22:50 CDT gabapentin (NEURONTIN) capsule 100 mg Given 01/14/2018 100 mg 100 mg, Oral, EVERY 8 HOURS, First dose 13:12 CDT on Mon01/12/18 at 1400, Until Discontinued Given 01/14/2018 100 mg 22:01 CDT Given 01/15/2018 100 mg 05:09 CDT gabapentin (NEURONTIN) capsule 600 mg Given 01/15/2018 600 mg 600 mg, Oral, EVERY 8 HOURS, First dose 14:20 CDT on Mon01/15/18 at 1415, Until Discontinued Given 01/15/2018 600 mg 22:00 CDT Given 01/16/2018 600 mg 06:05 CDT HYDROmorphone injection (DILAUDID) Given 01/11/2018 0.5 mg injection 0.5 mg 19:48 CDT 0.5 mg, Intravenous, EVERY 10 MIN PRN, Starting Viki 01/11/18 at 1723, Until Mon01/11/18 at 2055, Pain Injectable, For Pain Score 4-6, Maximum total dose of 2 mg Hold for RR < 10 Given 01/11/2018 0.5 mg 20:03 CDT Given 01/11/2018 0.5 mg 20:20 CDT HYDROmorphone injection (DILAUDID) Given 01/11/2018 1 mg injection 1 mg 18:27 CDT 1 mg, Intravenous, EVERY 10 MIN PRN, Starting Viki 01/11/18 at 1723, Until Mon01/11/18 at 205, Pain Injectable, For Pain Score 7-10, Maximum total dose of 2 mg Hold for RR <10 Given 01/11/2018 1 mg 19:01 CDT INHALATIONAL SPACING DEVICE MISC SPCR Given 01/12/2018 (Cabinet Override) 04:00 CDT NOW, 1 dose, Mon01/12/18 at 0430, Created by cabinet override lactated ringers infusion Given - New 01/11/2018 1,000 mL 20 mL/hr 1,000 mL, 1,000 mL, Intravenous, at 20 Bag 12:43 CDT mL/hr, CONTINUOUS, Starting Viki 01/11/18 at 1230, Until Mon01/12/18 at 2111, Pre-Op Given - New Bag 01/11/2018 15:34 CDT Given - New Bag 01/11/2018 1,000 mL 20 mL/hr 19:00 CDT meperidine injection (DEMEROL) Given 01/11/2018 12.5 mg syringe/vial 12.5 mg 18:47 CDT 12.5 mg, Intravenous, ONCE, 1 dose, Viki 01/11/18 at 1845, PACU (only) morphine SR (MS CONTIN; ORAMORPH SR) Given 01/11/2018 15 mg tablet 15 mg 19:52 CDT 15 mg, Oral, ONCE, 1 dose, Viki 01/11/18 at 1845, DO NOT crush or chew. morphine SR (MS CONTIN; ORAMORPH SR) Given 01/15/2018 15 mg tablet 15 mg 10:43 CDT 15 mg, Oral, EVERY 12 HOURS, First dose on 01/14/18 at 1015, Until Discontinued, DO NOT crush or chew. Given 01/15/2018 15 mg 22:01 CDT Given 01/16/2018 15 mg 10:28 CDT oxyCODONE (ROXICODONE, OXY-IR) tablet Given 01/11/2018 10 mg 5-10 mg 19:52 CDT 5-10 mg, Oral, ONCE PRN, 1 dose, Starting Viki 01/11/18 at 1723, Until Viki 01/11/18 at 2359, Pain PO, For Pain Score <4, PACU (only) oxyCODONE (ROXICODONE, OXY-IR) tablet Given 01/15/2018 15 mg 5-15 mg 05:09 CDT 5-15 mg, Oral, EVERY 3 HOURS PRN, Starting Viki 01/11/18 at 2117, Until 01/15/18 at 1306, Pain PO Given 01/15/2018 15 mg 08:09 CDT Given 01/15/2018 15 mg 11:14 CDT oxyCODONE (ROXICODONE, OXY-IR) tablet Given 01/16/2018 20 mg 5-20 mg 04:00 CDT 5-20 mg, Oral, EVERY 4 HOURS PRN, Starting 01/15/18 at 1300, Until 01/16/18 at 1655, Pain PO Given 01/16/2018 20 mg 08:09 CDT Given 01/16/2018 20 mg 11:56 CDT piperacillin/tazobactam (ZOSYN) 3.375 Given - New 01/15/2018 3.375 g 100 mL/hr g/50 mL iso-osmotic IVPB Bag 22:02 CDT 3.375 g, Intravenous, at 100 mL/hr, EVERY 6 HOURS, First dose on Mon01/11/18 at 2200, Until Discontinued Given - New Bag 01/16/2018 3.375 g 100 mL/hr 04:00 CDT Given - New Bag 01/16/2018 3.375 g 100 mL/hr 10:27 CDT piperacillin/tazobactam (ZOSYN) 4.5 g/100 mL iso-osmotic IVPB 4.5 g, Intravenous, at 200 mL/hr, EVERY 6 HOURS, First dose on Mon01/16/18 at 1600, Until Discontinued polyethylene glycol 3350 (MIRALAX) Given 01/16/2018 17 g packet 17 g 10:38 CDT 17 g (1 packet), Oral, DAILY, First dose on Mon01/16/18 at 1015, Until Discontinued, 8.5 GRAMS=0.5 PACKET 17 GRAMS=1 PACKET 34 GRAMS=2 PACKETS SODIUM CHLORIDE 0.9 % IV SOLP (Cabinet Given - New 01/11/2018 1,000 mL Override) Bag 22:22 CDT NOW, 1 dose, [facility] 01/11/18 at 2215, Created by cabinet override SODIUM CHLORIDE 0.9 % IV SOLP (Cabinet Given - New 01/13/2018 Override) Bag 09:50 CDT NOW, 1 dose, [facility] 01/13/18 at 1000, Created by cabinet override SODIUM CHLORIDE 0.9 % IV SOLP (Cabinet Given - New 01/16/2018 1,000 mL Override) Bag 04:00 CDT NOW, 1 dose, Mon01/16/18 at 0330, Created by cabinet override tiZANidine (ZANAFLEX) tablet 2 mg Given 01/15/2018 2 mg 2 mg, Oral, EVERY 8 HOURS PRN, Starting 14:20 CDT 01/15/18 at 1259, Until Mon01/16/18 at 1655, Muscle Cramps Given 01/15/2018 2 mg 22:01 CDT Given 01/16/2018 2 mg 06:05 CDT vancomycin (VANCOCIN) 1,250 mg in Given - New 01/12/2018 1,250 mg 275 mL/hr dextrose 5% (D5W) IVPB Bag 00:00 CDT 1,250 mg (rounded from 1,362 mg=15 mg/kg 90.8 kg), Intravenous, 275 mL, Administer over 60 Minutes, EVERY 8 HOURS, First dose on Viki 01/11/18 at 2200, Until Discontinued, Note Pharmacokinetic Monitoring: Please record infusion start time (Action=Given) and stop time (Action=Completed) of dose when blood levels are drawn. Given - New Bag 01/12/2018 1,250 mg 275 mL/hr 06:15 CDT vancomycin (VANCOCIN) 1,250 mg in Given - New 01/12/2018 1,250 mg 138 mL/hr dextrose 5% (D5W) IVPB Bag 14:40 CDT 1,250 mg, Intravenous, 275 mL, Administer over 120 Minutes, ONCE, 1 dose, Mon01/12/18 at 1445, Note Pharmacokinetic Monitoring: Please record infusion start time (Action=Given) and stop time (Action=Completed) of dose when blood levels are drawn. Please run over 120 minutes to prevent Red Man's Syndrome in this encounter
--- OUTSIDE RECORDS SUMMARY | 2018-01-20 19:50 | XMS REPORT | Encounter Summary ---
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 PATHOLOGY (01/11/2018 5:03 PM) PATHOLOGY REPORT [email or web address] Department of Pathology and Laboratory Medicine [address] [place] [address] Surgical Pathology Office:[phone] :[phone] SURGICAL PATHOLOGY REPORT NAME: THIAGO CATES SURG PATH #: [id number] MR #: [id number] SPECIMEN CLASS: SR BILLING #: [id number] ALT ID #:LOCATION: [id number] DATE OF PROCEDURE: [...] PM) Urine-HCG NEG [facility] Specific [place] 1.019 MAIN LAB Specimen Urine - Urine Performing Organization Address City/State/Zipcode Phone Number MAIN LAB [address] [place] [address] in this encounter Visit Diagnoses Diagnosis Chronic osteomyelitis of right femur with draining sinus (HCC) Chronic osteomyelitis, pelvic region and thigh Heterotopic ossification of bone Other disorders of bone and cartilage Painful orthopaedic hardware (HCC) Other complications due to other internal orthopedic device, implant, and graft Admitting Diagnoses Diagnosis Chronic osteomyelitis of right [...] Given 01/16/2018 650 mg 10:27 CDT albuterol 0.083% (PROVENTIL; VENTOLIN) Given 01/15/2018 2.5 mg nebulizer solution 2.5 mg 18:49 CDT 2.5 mg, Inhalation, RT TWICE DAILY AND PRN, First dose on Mon01/15/18 at 1800, Until Discontinued, When administered by RT, will be per RT policy. Given 01/16/2018 2.5 mg 05:45 CDT diphenhydrAMINE (BENADRYL) capsule 25 mg Given 01/12/2018 25 mg 25 mg, Oral, EVERY 6 HOURS PRN, 13:00 CDT Starting Mon01/11/18 at 2117, Until Mon01/16/18 at 1655, Insomnia, Itching PO diphenhydrAMINE (BENADRYL) injection 25 Given 01/12/2018 25 mg mg 02:07 CDT 25 mg, Intravenous, EVERY 6 HOURS PRN, Starting Mon01/11/18 at 2117, Until Mon01/16/18 at 1655, Insomnia, Itching Injectable docusate (COLACE) capsule 100 mg Given 01/15/2018 [...] Given 01/15/2018 40 mg Abdomen:LLQ 22:00 CDT gabapentin (NEURONTIN) capsule 600 mg Given 01/15/2018 600 mg 600 mg, Oral, EVERY 8 HOURS, First dose 14:20 CDT on Mon01/15/18 at 1415, Until Discontinued Given 01/15/2018 600 mg 22:00 CDT Given 01/16/2018 600 mg 06:05 CDT morphine SR (MS CONTIN; ORAMORPH SR) Given 01/15/2018 15 mg tablet 15 mg 10:43 CDT 15 mg, Oral, EVERY 12 HOURS, First dose on Mon01/14/18 at 1015, Until Discontinued, DO NOT crush or chew. Given 01/15/2018 15 mg 22:01 CDT Given 01/16/2018 15 mg 10:28 CDT oxyCODONE (ROXICODONE, OXY-IR) tablet Given 01/16/2018 20 mg 5-20 mg 04:00 CDT 5-20 mg, Oral, EVERY 4 HOURS PRN, Starting Mon01/15/18 at 1300, Until Mon01/16/18 at 1655, Pain PO Given 01/16/2018 20 mg 08:09 CDT Given 01/16/2018 20 mg 11:56 CDT piperacillin/tazobactam (ZOSYN) 4.5 g/100 mL iso-osmotic IVPB 4.5 g, Intravenous, at 200 mL/hr, EVERY 6 HOURS, First dose on Mon01/16/18 at 1600, Until Discontinued polyethylene glycol 3350 (MIRALAX) Given 01/16/2018 17 g packet 17 g 10:38 CDT 17 g (1 packet), Oral, DAILY, First dose on Mon01/16/18 at 1015, Until Discontinued, 8.5 GRAMS=0.5 PACKET 17 GRAMS=1 PACKET 34 GRAMS=2 PACKETS tiZANidine (ZANAFLEX) tablet 2 mg Given 01/15/2018 2 mg 2 mg, Oral, EVERY 8 HOURS PRN, Starting 14:20 CDT Mon01/15/18 at 1259, Until Mon01/16/18 at 1655, Muscle Cramps Given 01/15/2018 2 mg 22:01 CDT Given 01/16/2018 2 mg 06:05 CDT vancomycin (VANCOCIN) injection Given 01/11/2018 2 g INTRA-PROCEDURE MED, Starting Viki 16:41 CDT 01/11/18 at 1641, Until Viki 01/11/18 at 2055, Intra-op in this encounter
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
--- OUTSIDE RECORDS SUMMARY | 2018-01-20 19:50 | XMS REPORT | Encounter Summary ---
Author Author [facility] Organization [facility] Address Unknown Phone Unavailable Care Team Providers Care Elementary Vocal Music Teacher Name Role Phone Dany Sotelo MD Unavailable Self, Referral PCP Unavailable Dianna Collins Unavailable Unavailable Reason for Referral * Consult, Test & Treat (Routine) Status Reason Specialty Diagnoses / Referred By Referred To Procedures Contact Contact Closed Specialty Diagnoses Taz Miguel Leg length MD Mike Required discrepancy [address] [place] [address] Reason for Visit * Reason Comments Follow Up CT Results right femur Encounter Details Date Type Department Care Team Description 12/27/2017 Office Visit [facility] Taz Miguel MD Leg length discrepancy Physicians - Orthopedics [address] (Primary Dx) Orthopedics and Medical [address] [place] [address] [address] [phone] [place] [address] Social History Tobacco Use Types Packs/Day Years Used Date Current Every Day Smoker Cigarettes 0.5 5 Smokeless Tobacco: Never Used Alcohol Use Drinks/Week oz/Week Comments No Sex Assigned at Date Recorded Not on file as of this encounter Last Filed Vital Signs Vital Sign Reading Time Taken Blood Pressure 119/79 12/27/2017 2:57 PM CDT Pulse 92 12/27/2017 2:57 PM CDT Temperature - - Respiratory Rate - - Oxygen Saturation - - Inhaled Oxygen - - Concentration Weight 82.6 kg (182 lb) 12/27/2017 2:57 PM CDT Height 177.8 cm (5' 10") 12/27/2017 2:57 PM CDT Body Mass Index 26.11 12/27/2017 2:57 PM CDT in this encounter Plan of Treatment Name Priority Associated Diagnoses Order Schedule AMB REFERRAL FOR ORTHOTICS-EXTERNAL Routine Leg length discrepancy Ordered: 12/27/2017 as of this encounter Visit Diagnoses Diagnosis Leg length discrepancy - Primary Unequal leg length (acquired)
--- OUTSIDE RECORDS SUMMARY | 2018-01-20 19:50 | XMS REPORT | Encounter Summary ---
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
--- OUTSIDE RECORDS SUMMARY | 2018-01-20 19:51 | XMS REPORT | Encounter Summary ---
Author Author [facility] Organization [facility] Address Unknown Phone Unavailable Care Team Providers Care Manufacturing Software Engineer Name Role Phone Dany Sotelo MD Unavailable Self, Referral PCP Unavailable Dianna Collins Unavailable Unavailable Reason for Referral * Radiology Services (Routine) Status Reason Specialty Diagnoses / Referred By Referred To Procedures Contact Contact Authorized Radiology Diagnoses Taz Miguel Ct Chronic BMD [address] [place] osteomyelitis [address] (HCC) [place] [address] Physeal fracture [address] Phone: of proximal end [place], [place] [phone] of right femur [address] with nonunion, Phone: unspecified [phone] physeal fracture Fax: configuration, subsequent encounter Pain in right femur P rocedures CT LOWER EXTREM WO/W CONT RT * Radiology Services (Routine) Status Reason Specialty Diagnoses / Referred By Referred To Procedures Contact Contact Authorized Radiology Diagnoses Taz Miguel Ct Antionette Mckeon MD [address] [place] osteomyelitis [address] (HCC) [place] [address] Physeal fracture [address] Phone: of proximal end [place], [place] [phone] of right femur [address] with nonunion, Phone: unspecified [phone] physeal fracture Fax: configuration, subsequent encounter Pain in right femur P rocedures CT LOWER EXTREM WO/W CONT RT Reason for Visit * Radiology Services (Routine) Status Reason Specialty Diagnoses / Referred By Referred To Procedures Contact Contact Authorized Radiology Diagnoses Taz Miguel [address] Chronic MD Mike [address] [place] osteomyelitis [address] (HCC) [place] [address] Physeal fracture [address] Phone: of proximal end [place], [place] [phone] of right femur [address] with nonunion, Phone: unspecified [phone] physeal fracture Fax: configuration, subsequent encounter Pain in right femur P rocedures CT LOWER EXTREM WO/W CONT RT Encounter Details Date Type Department Care Team Description 12/27/2017 [facility] Taz Miguel MD Encounter [facility] Radiology [address] [place] [address] [place] [address] [place] [address] [phone] Social History Tobacco Use Types Packs/Day Years Used Date Current Every Day Smoker Cigarettes 0.5 5 Smokeless Tobacco: Never Used Alcohol Use Drinks/Week oz/Week Comments No Sex Assigned at Date Recorded Not on file as of this encounter Medications at Time of Discharge Medication Sig. Disp. Refills Start Date End Date gabapentin (NEURONTIN) Take 600 mg by mouth 600 mg tablet three times daily. morphine SR (MS CONTIN; Take 15 mg by mouth every ORAMORPH SR) 15 mg tablet 12 hours ciprofloxacin (CIPRO) 500 Take 500 mg by mouth 01/16/2018 mg tablet twice daily. methocarbamol (ROBAXIN) Take 500 mg by mouth 01/16/2018 500 mg tablet three times daily. oxyCODONE/acetaminophen Take 1 tablet by mouth 01/16/2018 (PERCOCET; ENDOCET) every 6 hours as needed 10/325 mg tablet for Pain as of this encounter Plan of Treatment Not on fileas of this encounter Procedures Procedure Name Priority Date/Time Associated Diagnosis Comments CT LOWER EXTREM WO/W CONT Routine 12/27/2017 Chronic osteomyelitis Results for this RT 2:41 PM CDT ([facility]) procedure are in the Physeal fracture of results section. proximal end of right femur with nonunion, unspecified physeal fracture configuration, subsequent encounter Pain in right femur in this encounter Results * CT LOWER EXTREM WO/W CONT RT [...] on 12/27/2017 4:05 PM. Performing Organization Address City/State/Zipcode Phone Number [facility] RES[facility] in this encounter Visit Diagnoses Diagnosis Chronic osteomyelitis (HCC) Chronic osteomyelitis, site unspecified 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, unspecified physeal fracture configuration, subsequent encounter Pain in right femur Administered Medications Medication Order MAR Action Action Date Dose Rate Site iohexol (OMNIPAQUE-350) 350 mg/mL Given 12/27/2017 100 mL injection 100 mL 14:45 CDT 100 mL, Intravenous, ONCE, 1 dose, 12/27/17 at 1445, NOTE: This is a HIGH ALERT Medication. sodium chloride PF 0.9% injection 50 mL Given 12/27/2017 50 mL 50 mL, Intravenous, ONCE, 1 dose, Wed 14:45 CDT 12/27/17 at 1445, Intra-procedure (IR) in this encounter
--- OUTSIDE RECORDS SUMMARY | 2018-01-20 19:51 | XMS REPORT | Encounter Summary ---
Author Author [facility] Organization [facility] Address Unknown Phone Unavailable Care Team Providers Care Product Marketing Intern Name Role Phone Dany Sotelo MD Unavailable Self, Referral PCP Unavailable Dianna Collins Unavailable Unavailable Stephanie Whitfield MD PCP Encounter Details Date Type Department Care Team Description 11/21/2017 [facility] Rad Outpatient, Radiologist Orders [address] [place] [address] Social History Tobacco Use Types Packs/Day Years Used Date Current Every Day Smoker Cigarettes 0.5 Alcohol Use Drinks/Week oz/Week Comments No Sex Assigned at Date Recorded Not on file as of this encounter Plan of Treatment Not on fileas of this encounter Results * GENERAL RAD LOWER EXT EXTERNAL IMAGING (11/01/2017 1:10 PM) Narrative Performed At This order has been auto finalized and does not contain a result. in this encounter Visit Diagnoses Not on filein this encounter
--- OUTSIDE RECORDS SUMMARY | 2018-01-20 19:51 | XMS REPORT | Encounter Summary ---
Author Author [facility] Organization [facility] Address Unknown Phone Unavailable Care Team Providers Care Painter Aircraft Name Role Phone Dany Sotelo MD Unavailable Self, Referral PCP Unavailable Dianna Collins Unavailable Unavailable Encounter Details Date Type Department Care Team Description 12/20/2017 [facility] Taz Miguel MD Other chronic [facility]counter [facility] 1st fl [address] osteomyelitis, [address] unspecified site (HCC) [place] [address] [place] [address] [phone] Social History Tobacco Use Types Packs/Day Years Used Date Current Every Day Smoker Cigarettes 0.5 Smokeless Tobacco: Never Used Alcohol Use Drinks/Week [...] Procedure Name Priority Date/Time Associated Diagnosis Comments SED RATE Routine 12/20/2017 Chronic osteomyelitis Results [...] nonunion, unspecified physeal fracture configuration, subsequent encounter in this encounter Results * SED RATE (12/20/2017 1:07 PM) Sed Rate -ESR 8 0 - 20 MM/HR [facility] Specimen Blood Performing Organization Address City/State/Zipcode Phone Number [facility] [address] [place] [address] * COMPREHENSIVE METABOLIC PANEL (12/20/2017 1:07 PM) [...] for questions. Specimen Blood Performing Organization Address City/[facility]/Zipcode Phone Number MAIN LAB [address] [place] [address] * CBC AND DIFF (12/20/2017 1:07 PM) [...] MAIN LAB Specimen Blood Performing Organization Address City/[facility]/Zipcode Phone Number MAIN LAB [address] [place] [address] * C REACTIVE PROTEIN (CRP) (12/20/2017 1:07 PM) C-Reactive Protein 0.67 <1.0 MG/DL [facility] Specimen Blood Performing Organization Address City/State/Zipcode Phone Number MAIN LAB [address] [place] [address] in this encounter Visit Diagnoses Diagnosis Chronic osteomyelitis (HCC) Chronic osteomyelitis, site unspecified 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, unspecified physeal fracture configuration, subsequent encounter Admitting Diagnoses Diagnosis Other chronic osteomyelitis, unspecified site (HCC) Other chronic osteomyelitis, unspecified site Unspecified physeal fracture of upper end of right femur, subsequent encounter for fracture with nonunion
--- OUTSIDE RECORDS SUMMARY | 2018-01-20 19:51 | XMS REPORT | Encounter Summary ---
Author Author [facility] Organization [facility] Address Unknown Phone Unavailable Care Team Providers Care Sap Enterprise Portal Consultant Name Role Phone Dany Sotelo MD Unavailable Self, Referral PCP Unavailable Dianna Collins Unavailable Unavailable Encounter Details Date Type Department Care Team Description 11/01/2017 Hospital [facility] Encounter Hospital Radiology [facility] [address] [place] [address] Social History Tobacco Use Types Packs/Day Years Used Date Current Every Day Smoker Cigarettes 0.5 Alcohol Use Drinks/Week oz/Week Comments No Sex Assigned at Date Recorded Not on file as of this encounter Medications at Time of Discharge Medication Sig. Disp. Refills Start Date End Date docusate (COLACE) 100 mg Take 1 Cap by mouth twice 180 Cap 0 201012/18/2017 capsule daily. HYDROcodone/acetaminophen Take 1-2 Tabs by mouth 90 Tab 0 04/17/2011 12/18/2017 (VICODIN) 5/500 mg tablet every 6 hours as needed for Pain. prochlorperazine Take 1 Tab by mouth every 30 Tab 0 04/17/201112/18 (COMPAZINE) 10 mg tablet 6 hours as needed. as of this encounter Plan of Treatment Not on fileas of this encounter Procedures Procedure Name Priority Date/Time Associated Diagnosis Comments GENERAL RAD LOWER EXT Routine 11/01/2017 Results for this EXTERNAL IMAGING 1:10 PM CDT procedure are in the results section. in this encounter Results * GENERAL RAD LOWER EXT EXTERNAL IMAGING (11/01/2017 1:10 PM) Narrative Performed At This order has been auto finalized and does not contain a result. in this encounter Visit Diagnoses Not on filein this encounter
--- OUTSIDE RECORDS SUMMARY | 2018-01-20 19:51 | XMS REPORT | Encounter Summary ---
Author Author [facility] Organization [facility] Address Unknown Phone Unavailable Care Team Providers Care Sap Bw Architect Name Role Phone Dany Sotelo MD Unavailable Self, Referral PCP Unavailable Dianna Collins Unavailable Unavailable Reason for Referral * Consult, Test & Treat (Routine) Status Reason Specialty Diagnoses / Referred By Referred To Procedures Contact Contact Pending Review Specialty Infectious Diagnoses Taz Miguel [facility] Antionette Mckeon MD Ortho and Medical Required osteomyelitis [address] Physeal fracture [address] [place], [place] [address] of right femur [address] Phone: with nonunion, unspecified [phone] physeal fracture Fax: configuration, subsequent encounter Pain in right femur * Radiology Services (Routine) Status Reason Specialty Diagnoses / Referred By Referred To Procedures Contact Contact Authorized Radiology Diagnoses Taz Miguel Ct Antionette Mckeon MD [address] [place] osteomyelitis [address] (HCC) [place] [address] Physeal fracture [address] Phone: of proximal end [place], [place] [phone] of right femur [address] with nonunion, Phone: unspecified [phone] physeal fracture Fax: configuration, subsequent encounter Pain in right femur P rocedures CT LOWER EXTREM WO/W CONT RT Reason for Visit * Reason Comments Leg Pain right femur * Consult, Test & Treat (Routine) Status Reason Specialty Diagnoses / Referred By Referred To Procedures Contact Contact No Auth Needed Orthopedic Surgery Diagnoses Stephanie Whitfield MD Key, Robles Nunez MD RIght leg pain [address] [facility] [place] [address] rocedures [address] [place], [place] Consult Phone: [phone] Phone: Encounter Details Date Type Department Care Team Description 12/20/2017 Office Visit [facility] Taz Miguel MD Chronic osteomyelitis Physicians - Orthopedics [address] [facility] ([facility] (Primary Dx); Orthopedics and Medical [address] [place]seal [place] [address] proximal end of right [address] [phone] femur with nonunion, [place], [place] unspecified physeal [address] fracture configuration, subsequent encounter; Pain in right femur Social History Tobacco Use Types Packs/Day Years Used Date Current Every Day Smoker Cigarettes 0.5 5 Smokeless Tobacco: Never Used Tobacco Cessation: Counseling Given: Yes Alcohol Use Drinks/Week oz/Week Comments No Sex Assigned at Date Recorded Not on file as of this encounter Last Filed Vital Signs Vital Sign Reading Time Taken Blood Pressure 109/68 12/20/2017 11:48 AM CDT Pulse 82 12/20/2017 11:48 AM CDT Temperature - - Respiratory Rate - - Oxygen Saturation - - Inhaled Oxygen - - Concentration Weight 82.6 kg (182 lb) 12/20/2017 11:48 AM CDT Height 177.8 cm (5' 10") 12/20/2017 11:48 AM CDT Body Mass Index 26.11 12/20/2017 11:48 AM CDT in this encounter Plan of Treatment Name Priority Associated Diagnoses Order Schedule AMB REFERRAL TO INFECTIOUS DISEASE Routine Chronic osteomyelitis Ordered : 12/20/2017 (HCC) 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, unspecified physeal fracture configuration, subsequent encounter Pain in right femur as of this encounter Results * CT LOWER EXTREM [...] on 12/27/2017 4:05 PM. Performing Organization Address City[facility] Phone Number [facility] RESULTS * SED RATE (12/20/2017 1:07 PM) Sed Rate -ESR 8 0 - 20 MM/HR [facility] Specimen Blood Performing Organization Address City/[facility] Phone Number [facility] [address] [place] [address] * COMPREHENSIVE METABOLIC PANEL (12/20/2017 1:07 PM) [...] Organization Address City/State/Zipcode Phone Number MAIN LAB [address] [place] [address] * CBC AND DIFF (12/20/2017 1:07 PM) [...] MAIN LAB Specimen Blood Performing Organization Address City/[facility]/Zipcode Phone Number [facility] [address] [place] [address] * C REACTIVE PROTEIN (CRP) (12/20/2017 1:07 PM) C-Reactive Protein 0.67 <1.0 MG/DL [facility] Specimen Blood Performing Organization Address [facility] Phone Number MAIN LAB [address] [place] [address] in this encounter Visit Diagnoses Diagnosis Chronic osteomyelitis (HCC) - Primary Chronic osteomyelitis, site unspecified 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, unspecified physeal fracture configuration, subsequent encounter Pain in right femur
--- OUTSIDE RECORDS SUMMARY | 2018-01-20 19:51 | XMS REPORT | Encounter Summary ---
Author Author [facility] Organization [facility] Address Unknown Phone Unavailable Care Team Providers Care Utilities Operator Name Role Phone Dany Sotelo MD Unavailable Self, Referral PCP Unavailable Dianna Collins Unavailable Unavailable Stephanie Whitfield MD PCP Encounter Details Date Type Department Care Team Description 12/20/2017 Procedure Pass [facility] Radiology [address] [place] [address] Social History Tobacco Use Types Packs/Day Years Used Date Current Every Day Smoker Cigarettes 0.5 5 Smokeless Tobacco: Never Used Alcohol Use Drinks/Week oz/Week Comments No Sex Assigned at Date Recorded Not on file as of this encounter Last Filed Vital Signs Vital Sign Reading Time Taken Blood Pressure - - Pulse - - Temperature - - Respiratory Rate - - Oxygen Saturation - - Inhaled Oxygen - - Concentration Weight 82.6 kg (182 lb) 12/27/2017 1:55 PM CDT Height 177.8 cm (5' 10") 12/27/2017 1:55 PM CDT Body Mass Index 26.11 12/27/2017 1:55 PM CDT in this encounter Plan of Treatment Not on fileas of this encounter Visit Diagnoses Not on filein this encounter
--- OUTSIDE RECORDS SUMMARY | 2018-01-20 19:51 | XMS REPORT | Encounter Summary ---
Author Author [facility] Organization [facility] Address Unknown Phone Unavailable Care Team Providers Care Procurement Consultant Name Role Phone Dany Sotelo MD Unavailable Self, Referral PCP Unavailable Dianna Collins Unavailable Unavailable Encounter Details Date Type Department Care Team Description 12/19/2017 Orders Only [facility] Taz Miguel MD Pain in right femur Physicians - Orthopedics [address] (Primary Dx) Orthopedics and Medical [address] [place] [address] [address] [phone] [place] [address] Social History Tobacco Use Types Packs/Day Years Used Date Current Every Day Smoker Cigarettes 0.5 Smokeless Tobacco: Never Used Alcohol Use Drinks/Week oz/Week Comments No Sex Assigned at Date Recorded Not on file as of this encounter Plan of Treatment Not on fileas of this encounter Results * FEMUR 2 VIEWS RIGHT (12/20/2017 12:17 [...] RESULTS in this encounter Visit Diagnoses Diagnosis Pain in right femur - Primary
--- OUTSIDE RECORDS SUMMARY | 2018-01-20 19:51 | XMS REPORT | Encounter Summary ---
Author Author [facility] Organization [facility] Address Unknown Phone Unavailable Care Team Providers Care Subcontract Administrator Name Role Phone Dany Sotelo MD Unavailable Self, Referral PCP Unavailable Dianna Collins Unavailable Unavailable Encounter Details Date Type Department Care Team Description 12/20/2017 Hospital [facility] Taz Miguel MD Encounter Hospital Radiology [address] MED [address] [place] [address] [address] FLO[address] [phone] [place] [address] [phone] Social History Tobacco Use Types Packs/Day Years [...] Procedure Name Priority Date/Time Associated Diagnosis Comments FEMUR 2 VIEWS RIGHT Routine 12/20/2017 Pain in right femur Results for this 12:17 PM CDT procedure are in the results section. in this encounter Results * FEMUR 2 VIEWS [...]
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
--- OUTSIDE RECORDS SUMMARY | 2018-01-20 19:52 | XMS REPORT | Continuity of Care Document ---
Author Author [facility] [employer] Address Unknown Phone Unavailable Allergies Active Description Code Type Severity Reaction Onset Reported/Identified Relationship to Patient Clinical Status Yes morphine Drug Allergy N/A N/A 12/20/2012 Medications There is no data. 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 HOP FARM WORKER, HILARIO L 300.00 AN ANXIETY UNSPEC 03/10/2009 MADL HOP FARM WORKER, HILARIO L 311 MO DEPRESS NOS 03/10/2009 MADL HOP FARM WORKER, HILARIO L 300.00 AN ANXIETY UNSPEC 03/10/2009 MADL HOP FARM WORKER, HILARIO L 311 MO DEPRESS NOS 03/10/2009 MADL HOP FARM WORKER, HILARIO L 300.00 AN ANXIETY UNSPEC 03/10/2009 MADL HOP FARM WORKER, HILARIO L 311 MO DEPRESS NOS 03/10/2009 MADL HOP FARM WORKER, HILARIO L 300.00 AN ANXIETY UNSPEC 03/10/2009 MADL HOP FARM WORKER, HILARIO L 311 MO DEPRESS NOS 12/20/2012 300.21 AN PANIC DIS W AGORA 12/20/2012 309.81 AN PTSD 12/20/2012 PRAFUL KOWALSKI APRN 300.21 AN PANIC DIS W AGORA 12/20/2012 PRAFUL KOWALSKI APRN 309.81 AN PTSD 12/20/2012 MADL HOP FARM WORKER, HILARIO L 300.21 AN PANIC DIS W AGORA 12/20/2012 MADL HOP FARM WORKER, HILARIO L 309.81 AN PTSD 12/20/2012 MADL HOP FARM WORKER, HILARIO L 300.21 AN PANIC DIS W AGORA 12/20/2012 MADL HOP FARM WORKER, HILARIO L 309.81 AN PTSD 12/20/2012 MADL HOP FARM WORKER, HILARIO L 300.21 AN PANIC DIS W AGORA 12/20/2012 MADL HOP FARM WORKER, HILARIO L 309.81 AN PTSD 12/20/2012 MADL HOP FARM WORKER, HILARIO L 300.21 AN PANIC DIS W AGORA 12/20/2012 MADL HOP FARM WORKER, HILARIO L 309.81 AN PTSD 11/26/2013 MADL HOP FARM WORKER, HILARIO L 723.1 CERVICALGIA 11/26/2013 MADL HOP FARM WORKER, HILARIO L 724.2 LUMBAGO 11/26/2013 MADL HOP FARM WORKER, HILARIO L 723.1 CERVICALGIA 11/26/2013 MADL HOP FARM WORKER, HILARIO L 724.2 LUMBAGO 11/26/2013 MADL HOP FARM WORKER, HILARIO L 723.1 CERVICALGIA 11/26/2013 MADL HOP FARM WORKER, HILARIO L 724.2 LUMBAGO 11/26/2013 MADL HOP FARM WORKER, HILARIO L 723.1 CERVICALGIA 11/26/2013 MADL HOP FARM WORKER, HILARIO L 724.2 LUMBAGO 12/19/2013 MADL HOP FARM WORKER, HILARIO L 462 ACUTE PHARYNGITIS 12/19/2013 MADL HOP FARM WORKER, HILARIO L 716.90 ARTHRITIS/ ARTHROPATHY, UNSPECIFIED 12/19/2013 MADL HOP FARM WORKER, HILARIO L 805.2 CLOSED FRACTURE OF DORSAL (THORACIC) VERTEBRA WITHOUT SPINAL CORD INJURY 12/19/2013 MADL HOP FARM WORKER, HILARIO L 462 ACUTE PHARYNGITIS 12/19/2013 MADL HOP FARM WORKER, HILARIO L 716.90 ARTHRITIS/ ARTHROPATHY, UNSPECIFIED 12/19/2013 MADL HOP FARM WORKER, HILARIO L 805.2 CLOSED FRACTURE OF DORSAL (THORACIC) VERTEBRA WITHOUT SPINAL CORD INJURY Procedures Code [place] [address] PSYCH DIAG EVAL W/MED SRVCS 12/20/2012 39028 XRAY LUMBAR SPINE 2 OR 3 VIEWS 12/10/2013 75129 UA W/ CULTURE IF INDICATED 12/10/2013 60900 [employer] 12/19/2013 Results There is no data. Encounters ACCT No. Visit Date/Time Discharge Status Pt. Type Provider Facility Loc./Unit Complaint [id number] 12/30/2014 02:51:10 ACT Document Registration [id number] 03/19/2014 10:57:00 03/19/2014 23:59:59 CLS Outpatient HILARIO RODRIGUEZ APRN [id number] 12/19/2013 14:27:00 12/19/2013 23:59:59 CLS Outpatient HILARIO RODRIGUEZ APRN [id number] 12/10/2013 08:49:00 12/10/2013 23:59:59 CLS Outpatient HILARIO RODRIGUEZ APRN [id number] 11/26/2013 10:29:00 11/26/2013 23:59:59 CLS Outpatient HILARIO RODRIGUEZ APRN [id number] 12/20/2012 09:23:00 12/20/2012 23:59:59 CLS Outpatient PRAFUL KOWALSKI APRN [id number] 12/20/2012 09:23:00 Document Registration [id number] 11/13/2017 09:40:00 11/13/2017 23:59:59 CLS Outpatient JUANITA MERCADO [facility]
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
--- NOTE | 2018-01-20 21:08 | Diagnostic Imaging Report ---
EXAMINATION: Right femur series Comparison is made to prior study 11/01/2017. INDICATION: Pain. FINDINGS: Prior screws within the right pelvis and acetabulum are unchanged. Compared to the prior examination, there has been removal of the prior antegrade intramedullary nail as well as the partially cannulated screws through the femoral head and neck. This has been replaced with a small intramedullary oren. Previous distal interlocking screws have also been removed. There has been some interval resection of components of the patient's heterotopic ossification along the lateral and proximal aspect of the right femur. Residual transversely oriented fracture line within the proximal femoral shaft remains evident. This is unchanged. No new osseous abnormality evident. There do appear to be some scattered foci of soft tissue gas. This may relate to recent surgery but underlying infectious or inflammatory process cannot be excluded. IMPRESSION: 1. Interval removal of prior fixation hardware with placement of a new smaller intramedullary oren. There has been interval resection of components of the patient's proximal and lateral femoral heterotopic ossification. Residual fracture line within the proximal femoral shaft remains evident. No new or acute osseous abnormality demonstrated. There do appear to be some foci of soft tissue gas. This may relate to recent surgery. Inflammatory or infectious process cannot be completely excluded. Dictated by: Dictated on workstation # [id number]
[2018-01-20 21:28] VITALS: BP 110/83
== END 2018-01-20 21:36 | disposition home or self-care (01) ==
LOC: EDUNIT# 19:41 → ER 19:43
DX: M96.830 Postprocedural hemorrhage of a musculoskeletal structure following a musculoskeletal system procedure (principal); G89.18 Other acute postprocedural pain; M86.9 Osteomyelitis, unspecified; G43.909 Migraine, unspecified, not intractable, without status migrainosus; G40.909 Epilepsy, unspecified, not intractable, without status epilepticus; F41.9 Anxiety disorder, unspecified; F32.9 Major depressive disorder, single episode, unspecified; Z96.0 Presence of urogenital implants; Z98.890 Other specified postprocedural states; Z77.22 Contact with and (suspected) exposure to environmental tobacco smoke (acute) (chronic); Z88.5 Allergy status to narcotic agent; Z94.5 Skin transplant status
CPT/HCPCS: 73552

== ENCOUNTER 2018-01-21 11:32 | Emergency (ER) | payer BC, MEDICAID ==
[~2018-01-21] VITALS: Ht 175.3 cm; Wt 90.7 kg
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
[2018-01-21 12:17] LABS: BASOPHILS # (AUTO) 0.1 10^3/uL (0.0-0.1); BASOPHILS % (AUTO) 1 % (0-10); EOSINOPHILS # (AUTO) 0.2 10^3/uL (0.0-0.3); EOSINOPHILS % (AUTO) 3 % (0-10); HEMATOCRIT 29 % (35-52); LYMPHOCYTES # (AUTO) 1.5 X 10^3 (1.0-4.0); LYMPHOCYTES % (AUTO) 20 % (12-44); MEAN CORPUSCULAR HEMOGLOBIN 23 PG (25-34); MEAN CORPUSCULAR HGB CONC 32 G/DL (32-36); MEAN CORPUSCULAR VOLUME 74 FL (80-99); MEAN PLATELET VOLUME 8.6 FL (7.4-10.4); MONOCYTES # (AUTO) 0.4 X 10^3 (0.0-1.0); MONOCYTES % (AUTO) 6 % (0-12); NEUTROPHILS # (AUTO) 5.2 X 10^3 (1.8-7.8); NEUTROPHILS % (AUTO) 70 % (42-75); PLATELET COUNT 357 10^3/uL (130-400); RED BLOOD COUNT 3.86 10^6/uL (4.35-5.85); WHITE BLOOD COUNT 7.4 10^3/uL (4.3-11.0)
[2018-01-21 12:39] LABS: ERYTHROCYTE SEDIMENTATION RATE 65 MM/HR (0-20)
[2018-01-21 12:49] VITALS: BP 126/72
== END 2018-01-21 12:49 | disposition home or self-care (01) ==
LOC: EDUNIT# 11:32 → ER 11:33
DX: M86.9 Osteomyelitis, unspecified (principal); T81.89XA Other complications of procedures, not elsewhere classified, initial encounter; G43.909 Migraine, unspecified, not intractable, without status migrainosus; G40.909 Epilepsy, unspecified, not intractable, without status epilepticus; F41.9 Anxiety disorder, unspecified; F32.9 Major depressive disorder, single episode, unspecified; Z98.890 Other specified postprocedural states; Z88.5 Allergy status to narcotic agent; Z77.22 Contact with and (suspected) exposure to environmental tobacco smoke (acute) (chronic)
CPT/HCPCS: 36415; 85025; 85652

== ENCOUNTER → 2018-01-23 | Outpatient (CLI) | payer BC, MEDICAID ==
[2018-01-23 16:44] LABS: BASOPHILS # (AUTO) 0.1 10^3/uL (0.0-0.1); BASOPHILS % (AUTO) 1 % (0-10); EOSINOPHILS # (AUTO) 0.3 10^3/uL (0.0-0.3); EOSINOPHILS % (AUTO) 5 % (0-10); HEMATOCRIT 27 % (35-52); HEMOGLOBIN 8.5 G/DL (11.5-16.0); LYMPHOCYTES # (AUTO) 1.8 X 10^3 (1.0-4.0); LYMPHOCYTES % (AUTO) 32 % (12-44); MEAN CORPUSCULAR HEMOGLOBIN 23 PG (25-34); MEAN CORPUSCULAR HGB CONC 32 G/DL (32-36); MEAN CORPUSCULAR VOLUME 73 FL (80-99); MEAN PLATELET VOLUME 9.1 FL (7.4-10.4); MONOCYTES # (AUTO) 0.3 X 10^3 (0.0-1.0); MONOCYTES % (AUTO) 6 % (0-12); NEUTROPHILS # (AUTO) 3.2 X 10^3 (1.8-7.8); NEUTROPHILS % (AUTO) 57 % (42-75); PLATELET COUNT 373 10^3/uL (130-400); RED BLOOD COUNT 3.68 10^6/uL (4.35-5.85); RED CELL DISTRIBUTION WIDTH 16.8 % (10.0-14.5); WHITE BLOOD COUNT 5.6 10^3/uL (4.3-11.0)
[2018-01-23 16:59] LABS: ALANINE AMINOTRANSFERASE 25 U/L (0-55); ALBUMIN 3.4 GM/DL (3.2-4.5); ALKALINE PHOSPHATASE 121 U/L (40-136); BILIRUBIN,TOTAL 0.3 MG/DL (0.1-1.0); BUN/CREATININE RATIO 17; CALCIUM 8.3 MG/DL (8.5-10.1); CARBON DIOXIDE 24 MMOL/L (21-32); CHLORIDE 111 MMOL/L (98-107); CREATININE SERUM 0.66 MG/DL (0.60-1.30); GFR ESTIMATED > 60; GLUCOSE 92 MG/DL (70-105); POTASSIUM 3.6 MMOL/L (3.6-5.0); SODIUM 144 MMOL/L (135-145); TOTAL PROTEIN 6.7 GM/DL (6.4-8.2)
== END ==
LOC: HH 08:00
PROVIDERS: ATTEND Orthopaedic Surgery
DX: M86.9 Osteomyelitis, unspecified (principal); D64.9 Anemia, unspecified; B96.5 Pseudomonas (aeruginosa) (mallei) (pseudomallei) as the cause of diseases classified elsewhere
CPT/HCPCS: 80053; 85025

== ENCOUNTER → 2018-01-30 | Outpatient (CLI) | payer BC, MEDICAID ==
[2018-01-30 13:35] LABS: BASOPHILS # (AUTO) 0.1 10^3/uL (0.0-0.1); BASOPHILS % (AUTO) 1 % (0-10); EOSINOPHILS # (AUTO) 0.3 10^3/uL (0.0-0.3); EOSINOPHILS % (AUTO) 5 % (0-10); HEMATOCRIT 29 % (35-52); HEMOGLOBIN 8.7 G/DL (11.5-16.0); LYMPHOCYTES # (AUTO) 1.4 X 10^3 (1.0-4.0); LYMPHOCYTES % (AUTO) 26 % (12-44); MEAN CORPUSCULAR HEMOGLOBIN 21 PG (25-34); MEAN CORPUSCULAR HGB CONC 30 G/DL (32-36); MEAN CORPUSCULAR VOLUME 72 FL (80-99); MEAN PLATELET VOLUME 9.7 FL (7.4-10.4); MONOCYTES # (AUTO) 0.4 X 10^3 (0.0-1.0); MONOCYTES % (AUTO) 8 % (0-12); NEUTROPHILS # (AUTO) 3.3 X 10^3 (1.8-7.8); NEUTROPHILS % (AUTO) 61 % (42-75); PLATELET COUNT 439 10^3/uL (130-400); RED BLOOD COUNT 4.06 10^6/uL (4.35-5.85); RED CELL DISTRIBUTION WIDTH 16.4 % (10.0-14.5); WHITE BLOOD COUNT 5.4 10^3/uL (4.3-11.0)
[2018-01-30 13:53] LABS: ALANINE AMINOTRANSFERASE 22 U/L (0-55); ALBUMIN 3.8 GM/DL (3.2-4.5); ALKALINE PHOSPHATASE 131 U/L (40-136); BILIRUBIN,TOTAL 0.2 MG/DL (0.1-1.0); BUN/CREATININE RATIO 15; CALCIUM 8.9 MG/DL (8.5-10.1); CARBON DIOXIDE 24 MMOL/L (21-32); CHLORIDE 108 MMOL/L (98-107); CREATININE SERUM 0.73 MG/DL (0.60-1.30); GFR ESTIMATED > 60; GLUCOSE 93 MG/DL (70-105); POTASSIUM 4.1 MMOL/L (3.6-5.0); SODIUM 141 MMOL/L (135-145); TOTAL PROTEIN 6.9 GM/DL (6.4-8.2)
== END ==
LOC: HH 01-29 08:00
PROVIDERS: ATTEND Orthopaedic Surgery
DX: M86.9 Osteomyelitis, unspecified (principal); B96.5 Pseudomonas (aeruginosa) (mallei) (pseudomallei) as the cause of diseases classified elsewhere; D64.9 Anemia, unspecified
CPT/HCPCS: 80053; 85025

== ENCOUNTER 2019-06-27 19:44 | Emergency (ER) | payer MEDICAID ==
[~2019-06-27] VITALS: Ht 177 cm; Wt 84.0 kg
[2019-06-27] MEDS ORDERED: LACTATED RINGERS 1,000 ML IV ONE (20:09)
[2019-06-27] MEDS ORDERED: ONDANSETRON 4 MG/2 ML (SDV) Z0FRAN IVP ONE (20:15)
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
[2019-06-27 20:21] LABS: BASOPHILS # (AUTO) 0.1 10^3/uL (0.0-0.1); BASOPHILS % (AUTO) 1 % (0-10); EOSINOPHILS # (AUTO) 0.2 10^3/uL (0.0-0.3); EOSINOPHILS % (AUTO) 2 % (0-10); HEMATOCRIT 43 % (35-52); HEMOGLOBIN 13.8 G/DL (11.5-16.0); LYMPHOCYTES # (AUTO) 3.3 X 10^3 (1.0-4.0); LYMPHOCYTES % (AUTO) 31 % (12-44); MEAN CORPUSCULAR HEMOGLOBIN 22 PG (25-34); MEAN CORPUSCULAR HGB CONC 32 G/DL (32-36); MEAN CORPUSCULAR VOLUME 68 FL (80-99); MEAN PLATELET VOLUME 10.1 FL (7.4-10.4); MONOCYTES # (AUTO) 0.5 X 10^3 (0.0-1.0); MONOCYTES % (AUTO) 5 % (0-12); NEUTROPHILS # (AUTO) 6.5 X 10^3 (1.8-7.8); NEUTROPHILS % (AUTO) 61 % (42-75); PLATELET COUNT 408 10^3/uL (130-400); RED CELL DISTRIBUTION WIDTH 18.2 % (10.0-14.5); WHITE BLOOD COUNT 10.6 10^3/uL (4.3-11.0)
[2019-06-27 20:32] LABS: ALANINE AMINOTRANSFERASE 26 U/L (0-55); ALBUMIN 4.2 GM/DL (3.2-4.5); ALKALINE PHOSPHATASE 97 U/L (40-136); BILIRUBIN,TOTAL 0.4 MG/DL (0.1-1.0); BUN/CREATININE RATIO 12; CALCIUM 9.1 MG/DL (8.5-10.1); CARBON DIOXIDE 22 MMOL/L (21-32); CHLORIDE 110 MMOL/L (98-107); CREATININE SERUM 0.73 MG/DL (0.60-1.30); GFR ESTIMATED > 60; GLUCOSE 87 MG/DL (70-105); MAGNESIUM 2.2 MG/DL (1.6-2.4); SODIUM 143 MMOL/L (135-145); TOTAL PROTEIN 7.8 GM/DL (6.4-8.2)
--- NOTE | 2019-06-27 20:32 | NUR ---
S/o to nurses station reporting pt is now experiencing ear discomfort. Provider notified.
[2019-06-27 20:43] LABS: ERYTHROCYTE SEDIMENTATION RATE 3 MM/HR (0-20)
[2019-06-27 20:55] LABS: BILIRUBIN,URINE NEGATIVE (NEGATIVE); CLARITY,URINE CLEAR; COLOR,URINE YELLOW; GLUCOSE, URINE (UA) NEGATIVE (NEGATIVE); KETONES,URINE 1+ (NEGATIVE); LEUKOCYTE ESTERASE ,URINE NEGATIVE (NEGATIVE); NITRITE,URINE NEGATIVE (NEGATIVE); PH,URINE 6.5 (5-9); PROTEIN,URINE NEGATIVE (NEGATIVE)
[2019-06-27 21:04] LABS: BACTERIA,URINE NEGATIVE /HPF; SQUAMOUS EPITHELIAL CELL,UR RARE /HPF
--- NOTE | 2019-06-27 21:07 | Diagnostic Imaging Report ---
PROCEDURE: CT head without contrast. TECHNIQUE: Multiple contiguous axial images were obtained through the brain without the use of intravenous contrast. Auto Exposure Controls were utilized during the CT exam to meet ALARA standards for radiation dose reduction. INDICATION: Headache and emesis. FINDINGS: The right frontal ventriculoperitoneal shunt tube is in stable position with tip near the foramen of Chang. There is no hydrocephalus or midline shift. No hemorrhage is identified. Overall, there has been no adverse change. There is a moderate amount of mural thickening within the maxillary sinuses. IMPRESSION: Development of bilateral maxillary sinus disease without acute intracranial abnormality detected. Dictated by: Dictated on workstation # [id number]
[2019-06-27 21:13] LABS: AMPHETAMINE SCREEN, URINE NEGATIVE (NEGATIVE); BARBITURATE SCREEN URINE NEGATIVE (NEGATIVE); BENZODIAZEPINES SCREEN URINE NEGATIVE (NEGATIVE); CANNABINOID SCREEN, URINE POSITIVE (NEGATIVE); COCAINE SCREEN URINE NEGATIVE (NEGATIVE); METHADONE STAT NEGATIVE (NEGATIVE); METHAMPHETAMINE SCREEN URINE S NEGATIVE (NEGATIVE); OPIATE SCREEN URINE NEGATIVE (NEGATIVE); OXYCODONE STAT NEGATIVE (NEGATIVE); PROPOXYPHENE STAT NEGATIVE (NEGATIVE); TRICYCLIC ANTIDEPRESSANTS SCRE NEGATIVE (NEGATIVE)
[2019-06-27] MEDS ORDERED: BUTA-249 PO (21:28)
[2019-06-27] MEDS ORDERED: LORA1TAB59 PO (21:28)
[2019-06-27] MEDS ORDERED: CEFD300C3 PO (21:28)
[2019-06-27] MEDS ORDERED: ONDA4TAB11 PO (21:28)
[2019-06-27] MEDS ORDERED: FLUT9.9S NS (21:28)
[2019-06-27] MEDS ORDERED: cefTRIAXone FOR IV USE 1,000 MG in WATER (STERILE) FOR INJECTION 10 ML IV ONE (21:30)
[2019-06-27] MEDS ORDERED: KETOROLAC 30 MG/ML VIAL IVP ONE (21:30)
[2019-06-27 21:44] VITALS: BP 105/74
== END 2019-06-27 21:47 | disposition home or self-care (01) ==
LOC: EDUNIT# 19:44 → ER 19:45
DX: J32.9 Chronic sinusitis, unspecified (principal); F17.200 Nicotine dependence, unspecified, uncomplicated; Z88.5 Allergy status to narcotic agent
CPT/HCPCS: 36415; 70450; 80053; 80306; 81000; 83735; 84703; 85025; 85652

== ENCOUNTER → 2020-01-30 | Outpatient (CLI) | payer MEDICAID ==
[~2020-01-30] MED LIST changes: +BUTA-249 PO; +FLUT9.9S NS; +LORA1TAB59 PO; +ONDA4TAB11 PO
== END ==
LOC: LAB 13:32
PROVIDERS: ATTEND Orthopaedic Surgery
DX: M86.651 Other chronic osteomyelitis, right thigh (principal)
CPT/HCPCS: 36415; 85652; 86141

== ENCOUNTER → 2020-09-22 | Outpatient (CLI) | payer MEDICAID ==
--- NOTE | 2020-09-22 19:58 | Diagnostic Imaging Report ---
INDICATION: Palpable lump right breast. CORRELATION is made with diagnostic mammogram earlier same day. Sonographic interrogation of the area of palpable abnormality right breast was performed. There is a lobulated solid mass at the 8:30 location of the right breast, 3 cm from the nipple, corresponding to the mammographic and palpable abnormality. This measures 2.7 x 1.7 x 1.6 cm. This does show mild internal vascularity. No posterior acoustic shadowing is seen. No other masses are identified. IMPRESSION: BI-RADS Category 4 Macrolobulated solid mass 8:30 location right breast corresponding to the palpable and mammographic abnormality. Features are suggestive of a fibroadenoma however not classic. Tissue sampling is recommended. This would be amenable to ultrasound-guided core biopsy. ACR BI-RADS Category 4: Suspicious abnormality. Result letter will be mailed to the patient. Note: At least 10% of breast cancer is not imaged by mammography. Dictated by: Dictated on workstation # [id number]
--- NOTE | 2020-09-22 20:07 | Diagnostic Imaging Report ---
INDICATION: Right breast lump. COMPARISON: No prior studies are available for comparison. BB marker was placed at the area of palpable abnormality in the right breast and 2-D and 3-D diagnostic mammography was performed. There is a lobulated mass in the lower and slightly outer right breast, corresponding to the palpable abnormality. No other mass is identified. No malignant appearing microcalcifications. Right axilla is unremarkable. IMPRESSION: BI-RADS 0 Lobulated mass lower outer right breast corresponding to the palpable abnormality. Further evaluation with ultrasound is recommended and will be performed today. ACR BI-RADS Category 0: Incomplete. (Needs additional imaging evaluation). Result letter will be mailed to the patient. Note: At least 10% of breast cancer is not imaged by mammography. Dictated by: Dictated on workstation # [id number]
== END ==
LOC: RAD 13:45
PROVIDERS: ATTEND Nurse Practitioner
DX: N63.13 Unspecified lump in the right breast, lower outer quadrant (principal)

== ENCOUNTER → 2020-09-30 | Outpatient (CLI) | payer MEDICAID ==
[~2020-09-30] VITALS: Ht 175.3 cm; Wt 85.0 kg
[~2020-09-30] MED LIST changes: +LIDOCAINE 1% INJ 20 ML 20 ML VIAL INJ ONE
--- NOTE | 2020-09-30 16:37 | Diagnostic Imaging Report ---
INDICATION: Right breast mass. Patient presents for ultrasound-guided core biopsy. PROCEDURE: Patient was brought to the sonographic suite and placed on table in the supine position. Ultrasound imaging of the right breast was performed to evaluate appropriate entry site. Right breast was then prepped and draped in the usual sterile fashion. A small amount of 1% lidocaine was utilized for local anesthesia. A total of three passes were made into the lobulated hypoechoic solid mass at the 8:30 location of the right breast, 3 cm from the nipple, utilizing 14-gauge Achieve needle. Core biopsies were obtained. A marker clip was then deployed. Hemostasis was obtained using manual compression. Patient tolerated the procedure well and was sent for post procedure mammogram in satisfactory condition. IMPRESSION: Successful ultrasound-guided core biopsy of the lobulated mass in the right breast, 8:30 location. Pathology results are currently pending. Dictated on workstation # [id number]
== END ==
LOC: RAD 14:00
PROVIDERS: ATTEND Family Medicine
DX: N63.13 Unspecified lump in the right breast, lower outer quadrant (principal)
CPT/HCPCS: 19083

== ENCOUNTER 2021-06-30 20:01 | Emergency (ER) | payer MEDICAID ==
[~2021-06-30 20:01] MED LIST changes: -LIDOCAINE 1% INJ 20 ML 20 ML VIAL INJ ONE
[2021-06-30] MEDS ORDERED: FAMOTIDINE 20MG/2ML IV (PEPCID) IVP ONE (20:30)
[2021-06-30] MEDS ORDERED: diphenhydrAMINE 50 MG/ML INJ (BENADRYL) IVP ONE (20:30)
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
[2021-06-30 21:14] VITALS: BP 119/83
== END 2021-06-30 21:21 | disposition home or self-care (01) ==
LOC: EDUNIT# 20:01 → ER 20:02
DX: T78.40XA Allergy, unspecified, initial encounter (principal); F17.210 Nicotine dependence, cigarettes, uncomplicated

== ENCOUNTER 2021-07-15 08:40 | Emergency (ER) | payer MEDICAID ==
[~2021-07-15] VITALS: Ht 157 cm; Wt 90.0 kg
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
[2021-07-15] MEDS: ONDANSETRON 4 MG/2 ML (SDV) Z0FRAN IVP ONE (09:23)
[2021-07-15] MEDS: FAMOTIDINE 20MG/2ML IV (PEPCID) IVP ONE (09:23)
[2021-07-15] MEDS: LACTATED RINGERS 1,000 ML IV ONE (09:25)
[2021-07-15 09:34] LABS: BASOPHILS # (AUTO) 0.1 10^3/uL (0.0-0.1); BASOPHILS % (AUTO) 0 % (0-10); EOSINOPHILS # (AUTO) 0.1 10^3/uL (0.0-0.3); EOSINOPHILS % (AUTO) 1 % (0-10); HEMATOCRIT 46 % (35-52); HEMOGLOBIN 14.8 g/dL (11.5-16.0); LYMPHOCYTES # (AUTO) 1.3 10^3/uL (1.0-4.0); LYMPHOCYTES % (AUTO) 11 % (12-44); MEAN CORPUSCULAR HEMOGLOBIN 25 pg (25-34); MEAN CORPUSCULAR HGB CONC 32 g/dL (32-36); MEAN CORPUSCULAR VOLUME 77 fL (80-99); MEAN PLATELET VOLUME 10.6 fL (9.0-12.2); MONOCYTES # (AUTO) 0.6 10^3/uL (0.0-1.0); MONOCYTES % (AUTO) 5 % (0-12); NEUTROPHILS # (AUTO) 9.2 10^3/uL (1.8-7.8); NEUTROPHILS % (AUTO) 82 % (42-75); PLATELET COUNT 240 10^3/uL (130-400); WHITE BLOOD COUNT 11.2 10^3/uL (4.3-11.0)
[2021-07-15 09:44] LABS: ALBUMIN 3.9 GM/DL (3.2-4.5); POTASSIUM 3.7 MMOL/L (3.6-5.0)
[2021-07-15 09:45] LABS: CALCIUM 8.9 MG/DL (8.5-10.1)
[2021-07-15 09:46] LABS: TOTAL PROTEIN 7.2 GM/DL (6.4-8.2)
[2021-07-15 09:48] LABS: BILIRUBIN,TOTAL 0.6 MG/DL (0.1-1.0)
[2021-07-15 09:50] LABS: BILIRUBIN,URINE NEGATIVE (NEGATIVE); CLARITY,URINE SL CLOUDY; COLOR,URINE YELLOW; GLUCOSE, URINE (UA) NEGATIVE (NEGATIVE); KETONES,URINE NEGATIVE (NEGATIVE); LEUKOCYTE ESTERASE ,URINE 1+ (NEGATIVE); NITRITE,URINE NEGATIVE (NEGATIVE); PH,URINE 7.5 (5-9); PROTEIN,URINE TRACE (NEGATIVE)
[2021-07-15 09:50] LABS: CREATININE SERUM 0.76 MG/DL (0.60-1.30)
[2021-07-15 10:02] LABS: BACTERIA,URINE TRACE /HPF
[2021-07-15] MEDS: ANTACID SUSP 30 ML UDC (MYLANTA) PO ONE (11:22)
[2021-07-15] MEDS: LIDOCAINE 2% VISCOUS 15 ML UDC PO ONE (11:22)
[2021-07-15] MEDS ORDERED: HOLD METFORMIN - RECEIVED CONTRAST 20 ML VIAL IV SCH (13:00)
[2021-07-15] MEDS: NS 100 ML (IVPB) BAG IV ONE (13:18)
[2021-07-15] MEDS: CATHETER FLUSH 10 ML SYR IV PRN (13:18)
[2021-07-15] MEDS: IOHEXOL 350 MG/ML 100 ML (OMNIPAQUE 350) VIAL IV ONE (13:18)
[2021-07-15] MEDS: fentaNYL INJ 100 MCG/2 ML AMP IVP ONE (13:20)
--- NOTE | 2021-07-15 13:32 | Diagnostic Imaging Report ---
EXAMINATION: CT abdomen and pelvis with intravenous contrast. TECHNIQUE: Multiple contiguous axial images were obtained through the abdomen and pelvis after the uneventful administration of intravenous contrast. All CT scans use one or more of the following dose optimizing techniques: automated exposure control, MA and/or KvP adjustment based on patient size and exam type or iterative reconstruction. HISTORY: Right sided abdominal pain COMPARISON: 11/07/2017 FINDINGS: Lung bases: The lung bases are clear. Solid organs: The liver is normal without focal lesion. The gallbladder is surgically absent. There is no biliary ductal dilation. Pancreas is normal. Spleen is normal. Adrenal glands are normal. The kidneys are normal without hydronephrosis. Bowel: The stomach and small bowel are normal without obstruction. The colon and appendix are normal. Peritoneum: There is free fluid in the lower abdomen and pelvis. 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 No suspicious lymphadenopathy. Vasculature: Normal without aneurysm. Musculoskeletal: Degenerative changes of the spine without suspicious osseous lesion or compression fracture. Surgical changes of the right hip. Chronic healed left superior and inferior pubic ramus fractures. No new acute fracture is seen. Pelvis: The uterus is unremarkable. There is a 4.8 cm right adnexal cystic lesion. The urinary bladder is normal. IMPRESSION: 1. No acute abnormality in the abdomen or pelvis. 2. A 4.8 cm right adnexal cystic lesion. Consider pelvic ultrasound for more definitive characterization. 3. Mild ascites in the pelvis likely secondary to HOME [employer]ATION SERVICE CLE[employer]ER shunt. Dictated by: Dictated on workstation # [id number]
--- NOTE | 2021-07-15 16:07 | Diagnostic Imaging Report ---
PROCEDURE: US pelvic (non OB). TECHNIQUE: Multiple real-time grayscale images were obtained over the pelvis in various projections, transabdominally. INDICATION: Right flank pain and abnormal CT. COMPARISON: Correlation is made with a CT study performed earlier the same day. Uterus is anteverted measuring 10.1 x 5.6 x 4.2 cm. Endometrium is 8 mm in thickness. No myometrial mass is detected. Right ovary measures 5.7 x 3.5 x 4.2 cm and left ovary measures 3.4 x 2.6 x 2.5 cm. Right ovary does contain a 4.6 x 3.6 x 4.1 cm cyst corresponding with the CT abnormality. This appears appears to be fairly simple. There is blood flow to both ovaries. No free fluid is seen. IMPRESSION: Simple cyst of right ovary 4.6 cm in size. This corresponds to the CT abnormality. No other abnormality is detected. Dictated by: Dictated on workstation # [id number]
[2021-07-15] MEDS: KETOROLAC 30 MG/ML VIAL IVP ONE (16:29)
[2021-07-15] MEDS ORDERED: TRAM-42 PO (16:56)
[2021-07-15] MEDS ORDERED: SUCR1TAB36 PO (16:56)
[2021-07-15] MEDS ORDERED: ONDA4TAB11 SL (16:56)
[2021-07-15] MEDS ORDERED: OMEP20CA18 PO (16:56)
[2021-07-15 17:07] VITALS: BP 104/65
== END 2021-07-15 17:07 | disposition home or self-care (01) ==
LOC: EDUNIT# 08:40 → ER 08:41
DX: N83.201 Unspecified ovarian cyst, right side (principal); R10.13 Epigastric pain; F17.290 Nicotine dependence, other tobacco product, uncomplicated; Z90.49 Acquired absence of other specified parts of digestive tract
CPT/HCPCS: 36415; 74177; 76856; 80053; 81000; 83690; 84703; 85025; 86141; 93005

== ENCOUNTER → 2022-03-31 | Outpatient (CLI) | payer MEDICAID ==
[~2022-03-31] MED LIST changes: +CATHETER FLUSH 10 ML SYR IV PRN; +HOLD METFORMIN - RECEIVED CONTRAST 20 ML VIAL IV SCH; +IOHEXOL 350 MG/ML 100 ML (OMNIPAQUE 350) VIAL IV ONE; +NS 100 ML (IVPB) BAG IV ONE; +OMEP20CA18 PO; +ONDA4TAB11 SL; +SUCR1TAB36 PO; +TRAM-42 PO
--- NOTE | 2022-03-31 14:53 | Diagnostic Imaging Report ---
EXAMINATION: CT abdomen and pelvis with intravenous contrast. TECHNIQUE: Multiple contiguous axial images were obtained through the abdomen and pelvis after the uneventful administration of intravenous contrast. All CT scans use one or more of the following dose optimizing techniques: automated exposure control, MA and/or KvP adjustment based on patient size and exam type or iterative reconstruction. HISTORY: Umbilical pain COMPARISON: 07/15/2021 FINDINGS: Limited views of the lower thorax show 1.3 cm right breast nodule. The liver is normal without focal lesion. There is no biliary ductal dilation. Gallbladder is absent. Pancreas is normal. Spleen is normal. Adrenal glands are normal. The kidneys are normal. There is no hydronephrosis. Urinary bladder is normal. Bowel is normal in caliber without obstruction or inflammation. The appendix is normal. A shunt catheter is present in the peritoneum with tip in the right lower quadrant with a small amount of adjacent free fluid. No free air. There is a tiny umbilical hernia containing fat. No abdominal or pelvic lymphadenopathy. Aorta is normal in caliber without aneurysm. There are no suspicious osseus lesions. There has been a right pelvic fixation. There are old healed left superior and inferior pubic rami fractures. IMPRESSION: 1. No acute abnormality in the abdomen or pelvis. Dictated by: Dictated on workstation # [id number]
== END ==
LOC: RAD 13:28
PROVIDERS: ATTEND Nurse Practitioner Family
DX: R10.33 Periumbilical pain (principal)
CPT/HCPCS: 74177

== ENCOUNTER → 2022-05-31 | Outpatient (CLI) | payer MEDICAID ==
[~2022-05-31] MED LIST changes: -CATHETER FLUSH 10 ML SYR IV PRN; -HOLD METFORMIN - RECEIVED CONTRAST 20 ML VIAL IV SCH; -IOHEXOL 350 MG/ML 100 ML (OMNIPAQUE 350) VIAL IV ONE; -NS 100 ML (IVPB) BAG IV ONE
--- NOTE | 2022-05-31 13:51 | Diagnostic Imaging Report ---
EXAMINATION: KNEE, RIGHT, 3 VIEWS. INDICATION: Right knee injury. COMPARISON: Right femur radiographs from 01/20/2018. TECHNIQUE: Three views of the right knee. FINDINGS: An intramedullary roen in the right femur is partially imaged. No acute fracture about the right knee. No knee joint effusion or mineralized joint bodies. Partially imaged heterotopic ossification and periosteal callus associated with the remote proximal femoral fracture. IMPRESSION: No acute osseous abnormality about the right knee. Dictated by: Dictated on workstation # [id number]
== END ==
LOC: RAD 13:17
PROVIDERS: ATTEND Nurse Practitioner Family
DX: S89.91XA Unspecified injury of right lower leg, initial encounter (principal)
CPT/HCPCS: 73562

== ENCOUNTER → 2022-09-12 | Outpatient (CLI) | payer MEDICAID ==
--- NOTE | 2022-09-12 16:56 | Diagnostic Imaging Report ---
PROCEDURE: Pelvic comp/transvaginal sonogram. TECHNIQUE: Complete transabdominal and transvaginal pelvic ultrasound was performed. In addition, limited pelvic Doppler was performed. INDICATION: Menorrhagia. Uterus is anteverted measuring 9.8 x 4.7 x 6.1 cm. Endometrium is 7 mm in thickness. Myometrium is generally heterogeneous. There is an area of heterogeneity and shadowing lower uterine segment on the left, approximately 15 mm in size. This could represent a small fibroid. The right ovary was not visualized. Left ovary measures 3.6 x 2.1 x 2.8 cm. There is blood flow to the left ovary. No adnexal mass or free fluid is detected. IMPRESSION: Questionable fibroid in the left uterine body. The right ovary was not visualized. No other abnormalities are detected. Dictated by: Dictated on workstation # [id number]
== END ==
LOC: RAD 13:46
PROVIDERS: ATTEND Obstetrics & Gynecology
DX: N92.0 Excessive and frequent menstruation with regular cycle (principal)
CPT/HCPCS: 76830; 76856

== ENCOUNTER 2022-10-03 05:37 | Outpatient (CLI) | payer MEDICAID ==
[~2022-10-03] VITALS: Ht 175.2 cm; Wt 91.8 kg
[2022-10-03] MEDS ORDERED: NAPR220T66 PO (15:29)
== END 2022-10-03 15:40 | disposition home or self-care (01) ==
LOC: PREOP 05:37
PROVIDERS: ATTEND Obstetrics & Gynecology
DX: Z01.818 Encounter for other preprocedural examination (principal)

== ENCOUNTER 2022-10-10 06:04 | Day surgery (SDC) | payer MEDICAID ==
[2022-10-10] VITALS (9 sets, daily range): BP systolic 92–124; BP diastolic 8–88
[~2022-10-10] VITALS: Ht 175 cm; Wt 91.8 kg
[~2022-10-10 06:04] MED LIST changes: +NAPR220T66 PO
[2022-10-10] MEDS ORDERED: LACTATED RINGERS 1,000 ML IV PRN (06:15)
[2022-10-10] MEDS ORDERED: ONDANSETRON 4 MG/2 ML (SDV) Z0FRAN ONE (06:54)
[2022-10-10] MEDS ORDERED: proPOfol 200 MG/20 ML (DIPRIVAN) VIAL IV ONE (06:54)
[2022-10-10] MEDS ORDERED: MIDAZOLAM 2 MG/2 ML (VERSED) VIAL ONE (06:54)
[2022-10-10] MEDS ORDERED: fentaNYL INJ 100 MCG/2 ML AMP ONE (06:54)
[2022-10-10] MEDS ORDERED: LIDOCAINE PF 2% 5 ML (XYLOCAINE) VIAL ONE (06:54)
[2022-10-10] MEDS ORDERED: SEVOFLURANE (ULTANE) 15 ML INHAL SOLN ONE ×2 (06:54→08:03)
[2022-10-10 06:57] LABS: BASOPHILS # (AUTO) 0.1 10^3/uL (0.0-0.1); BASOPHILS % (AUTO) 1 % (0-10); EOSINOPHILS # (AUTO) 0.3 10^3/uL (0.0-0.3); EOSINOPHILS % (AUTO) 4 % (0-10); HEMATOCRIT 39 % (35-52); LYMPHOCYTES # (AUTO) 2.1 10^3/uL (1.0-4.0); LYMPHOCYTES % (AUTO) 33 % (12-44); MEAN CORPUSCULAR HEMOGLOBIN 26 pg (25-34); MEAN CORPUSCULAR HGB CONC 33 g/dL (32-36); MEAN CORPUSCULAR VOLUME 80 fL (80-99); MEAN PLATELET VOLUME 10.3 fL (9.0-12.2); MONOCYTES # (AUTO) 0.4 10^3/uL (0.0-1.0); MONOCYTES % (AUTO) 7 % (0-12); NEUTROPHILS # (AUTO) 3.6 10^3/uL (1.8-7.8); NEUTROPHILS % (AUTO) 55 % (42-75); PLATELET COUNT 226 10^3/uL (130-400); WHITE BLOOD COUNT 6.4 10^3/uL (4.3-11.0)
--- NOTE | 2022-10-10 07:08 | Progress Note-Pre Operative ---
Pre-Operative Progress Note Date H&P Reviewed: Oct 10, 2022 Time H&P Reviewed: 07:00 History & Physical: H&P Reviewed, No changes noted Pre-Operative Diagnosis: Abnormal uterine bleeding Plan for D&C hysteroscopy and Ablation ABBIE EVANGELISTA DO Oct 10, 2022 07:08
[2022-10-10] MEDS ORDERED: KETOROLAC 30 MG/ML VIAL ONE (08:03)
[2022-10-10] MEDS ORDERED: OXYC1TAB87 PO (08:24)
--- NOTE | 2022-10-10 08:31 | Operative Report ---
Operative Report Date of Procedure/Surgery Oct 10, 2022 Surgeon (s) NEELA TUTTLE DO Spectroscopist (s): NA Post-Operative Diagnosis Abnormal uterine bleeding Procedure Performed Dilation and curettage with hysteroscopy and Meghan ablation Description of Procedure Anesthesia Type: General Estimated blood loss (mL): Minimal Specimen(s) collected/removed [facility] [place] Description of the Procedure Informed consent was obtained and signed patient was taken to the OR Oral. 2 placed under general LMA anesthesia placed in the dorsolithotomy position prepped and draped usual sterile fashion. A timeout was performed. Pelvic exam under anesthesia revealed a normal-sized uterus no adnexal masses. A weighted speculum was placed into the posterior vaginal vault and the single- tooth tenaculum was used to grasp anterior lip the cervix.Uterus was sounded to 9 cm. The os was dilated to allow passage of the hysteroscope the cervical length was noted to be 4 cm. The hysteroscope was then inserted using sterile water as a fluid medium. The uterine cavity was inspected both ostia were visualized. There was noted to be a possible polyp on the anterior wall of the uterus. The hysteroscope was then removed and endometrial curettings were obtained to the was a good uterine cry.The Meghan ablation device was then inserted was tested and engaged for 120 seconds.The Meghan ablation device was then removed and the hysteroscope was reinserted. The uterine cavity was inspected once more and there was a good ablation. The hysteroscope was removed followed by the single-tooth and weighted speculum. The patient tolerated the procedure well and was taken to recovery room in stable condition. All my counts were correct x2. EBL minimal Fluids 500 Urine output 50 Fluid balance 500in/300out Findings of the Procedure Normal uterine cavity with possible polyp and good burn post ablation. Allergies and Home Medications Allergies Coded Allergies: kiwi (Verified Allergy, Intermediate, JOSEFINA, 10/03/22) codeine (Unverified Allergy, Unknown, RASH/CHEST, 10/03/22) vancomycin (Verified Adverse Reaction, Severe, Red man syndrome, 10/03/22) Uncoded Allergies: STEROIDS (Adverse Reaction, Unknown, 06/30/21) SURGEONS SAID I'M NOT SUPPOSED TO TAKE THEM Patient Home Medication List Home Medication List Reviewed: Yes Naproxen Sodium (Aleve) 220 Mg Tablet, 220 MG PO UD, (Reported) Entered as Reported by: WANG REEVES on 10/03/22 1529 Last Action: Reviewed Oxycodone HCl/Acetaminophen (Percocet 5-325 mg Tablet) 1 Each Tablet, 1 TAB PO Q6H Prescribed by: Neela Tuttle on 10/10/22 0825 Last Action: Reviewed Discontinued Medications Butalb/Acetaminophen/Caffeine (Esgic Capsule) 1 Each Capsule, 1-2 EACH PO Q6H PRN for HEADACHE Discontinued Reason: No Longer Taking Prescribed by: SHARONDA PHOENIX on 03/28/15 0419 Butalb/Acetaminophen/Caffeine (Esgic 50-325-40 mg Tablet) 1 Each Tablet, 1-2 EACH PO Q6 Discontinued Reason: No Longer Taking Prescribed by: SHARONDA PHOENIX on 06/27/192127 Cefdinir (Cefdinir) 300 Mg Capsule, 300 MG PO BID Discontinued Reason: No Longer Taking Prescribed by: SHARONDA PHOENIX on 06/27/192127 Fluticasone Propionate (Flonase Allergy Relief) 9.9 Ml Cunningham.susp, 2 SPRAY NS DAILY Discontinued Reason: No Longer Taking Prescribed by: SHARONDA PHOENIX on 06/27/192127 Gabapentin (Neurontin) 800 Mg Tablet, Unknown Dose PO, (Reported) Discontinued Reason: No Longer Taking Entered as Reported by: CRISTIAN LEES on 11/07/17 0314 Loratadine/Pseudoephedrine (Claritin-D 12 Hour Tablet) 1 Each Tab.er.12h, 1 EACH PO BID Discontinued Reason: No Longer Taking Prescribed by: SHARONDA PHOENIX on 06/27/192128 Morphine Sulfate (Ms Contin) 15 Mg Tablet.er, 15 MG PO BID Discontinued Reason: No Longer Taking Prescribed by: AIYANA MCNAMARA on 11/01/17 1415 Omeprazole (Omeprazole) 20 Mg Capsule.dr, 20 MG PO BID Discontinued Reason: No Longer Taking Prescribed by: DAVID PERDUE on 07/15/21 1656 Ondansetron (Ondansetron Odt) 4 Mg Tab.rapdis, 4 MG PO Q6H PRN for NAUSEA/VOMITING Discontinued Reason: No Longer Taking Prescribed by: SHARONDA PHOENIX on 06/27/192127 Ondansetron (Ondansetron Odt) 4 Mg Tab.rapdis, 4 MG SL Q4H PRN for NAUSEA/VOMITING Discontinued Reason: No Longer Taking Prescribed by: DAVID PERDUE on 07/15/21 1656 Oxycodone HCl/Acetaminophen (Percocet 10-325 mg Tablet) 1 Each Tablet, 1 EACH PO Q6H PRN for PAIN-MODERATE Discontinued Reason: No Longer Taking Prescribed by: AIYANA MCNAMARA on 11/01/17 1415 Sucralfate (Carafate) 1 Gm Tablet, 1 GM PO QID Discontinued Reason: No Longer Taking Prescribed by: DAVID PERDUE on 07/15/21 165 Tramadol HCl (Ultram) 50 Mg Tablet, 50 MG PO Q6H PRN for PAIN-BREAKTHROUGH Discontinued Reason: No Longer Taking Prescribed by: DAVID PERDUE on 07/15/21 165 NEELA TUTTLE DO Oct 10, 2022 08:31
[2022-10-10] MEDS ORDERED: oxyCODONE/APAP 5/325MG (PERCOCET 5) TABLET PO ONE (09:15)
--- NOTE | 2022-10-10 10:07 | Anesthesia-General Post-Op ---
General Patient Condition Mental Status/LOC: Same as Preop Cardiovascular: Satisfactory Nausea/Vomiting: Absent Respiratory: Satisfactory Pain: Controlled Complications: Absent Post Op Complications Complications None Follow Up Care/Instructions Patient Instructions None needed. Anesthesia/Patient Condition Patient Condition Patient is doing well, no complaints, stable vital signs, no apparent adverse anesthesia problems. No complications reported per nursing. [place] [facility]: Yes RUTHY VILLEGAS CRNA Oct 10, 2022 10:07
== END 2022-10-10 10:15 | disposition home or self-care (01) ==
LOC: SDC 06:04
PROVIDERS: ATTEND Obstetrics & Gynecology
DX: N93.9 Abnormal uterine and vaginal bleeding, unspecified (principal); N63.10 Unspecified lump in the right breast, unspecified quadrant; F17.210 Nicotine dependence, cigarettes, uncomplicated; Z28.310 Unvaccinated for COVID-19
CPT/HCPCS: 36415; 84703; 85025; 87081

== ENCOUNTER → 2022-10-27 | Outpatient (CLI) | payer MEDICAID ==
[~2022-10-27] MED LIST changes: +OXYC1TAB87 PO
--- NOTE | 2022-10-27 10:14 | Diagnostic Imaging Report ---
INDICATION: Palpable lump right breast. Correlation is made with prior mammogram from 09/22/2020. 2-D and 3-D unilateral right diagnostic mammography was performed with with CAD. The current study was also evaluated with a Computer Aided Detection (CAD) system. A marker was placed at the area of palpable abnormality in the lower outer right breast. Lobulated mass in the right breast anterior to mid depth is again noted. This appears to be slightly larger on today's study, with more lobulations. There is a biopsy marker clip noted within the lesion from prior biopsy. 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 No new mass is seen. Left breast is unremarkable. No malignant-appearing microcalcifications are seen. Axilla is unremarkable. IMPRESSION: BI-RADS Category 0 Slight increase in size of a lobulated mass in the lower slightly outer right breast at the area of palpable abnormality, previously shown to represent a fibroadenoma by biopsy. Even so, sonographic interrogation of this area is recommended and will be performed today. ACR BI-RADS Category 0: Incomplete. (Needs additional imaging evaluation). Result letter will be mailed to the patient. Note: At least 10% of breast cancer is not imaged by mammography. Dictated by: Dictated on workstation # [id number]
--- NOTE | 2022-10-27 10:30 | Diagnostic Imaging Report ---
INDICATION: Palpable lump right breast. Correlation is made with diagnostic mammogram earlier same day as well as prior right breast ultrasound from 09/22/2020. Sonographic interrogation of the lower outer right breast was performed. This corresponds to the 8:30 location, 3-4 cm from the nipple. There is a lobulated solid mass at this location measuring 2.3 x 2.0 x 1.6 cm. The mass measures approximately 2.7 x 1.7 x 1.6 cm on prior. While the overall mass does appear to be similar in size, does appear to be slightly more lobulated. No new masses are seen. There does appear to be some internal vascularity. IMPRESSION: BI-RADS Category 2 Lobulated solid mass at the 8:30 location of the right breast corresponding to palpable abnormality. This has been previously biopsied and shown to represent a fibroadenoma. This does appear to be slightly more lobulated on today's study. Patient reports that the lesion does create a significant discomfort and pain and wishes for surgical excision. A surgical consultation would be recommended. ACR BI-RADS Category 2: Benign findings. Dictated by: Dictated on workstation # [id number]
== END ==
LOC: RAD 09:14
PROVIDERS: ATTEND Obstetrics & Gynecology
DX: N63.13 Unspecified lump in the right breast, lower outer quadrant (principal); Z98.890 Other specified postprocedural states
CPT/HCPCS: 76642; 77065; G0279

== ENCOUNTER 2022-11-16 07:49 | Outpatient (CLI) | payer MEDICAID ==
[~2022-11-16] VITALS: Ht 175.2 cm; Wt 91.8 kg
[2022-11-16] MEDS ORDERED: MULT-974 PO (12:47)
[2022-11-17] MEDS ORDERED: HYDR-3817 PO (11:09)
== END 2022-11-16 12:55 ==
LOC: PREOP 07:49
PROVIDERS: ATTEND Surgery
DX: Z01.818 Encounter for other preprocedural examination (principal)

== ENCOUNTER 2022-11-17 11:06 | Day surgery (SDC) | payer MEDICAID ==
[2022-11-17] VITALS (10 sets, daily range): BP systolic 103–124; BP diastolic 63–80
[~2022-11-17] VITALS: Ht 172 cm; Wt 91.8 kg
[~2022-11-17 11:06] MED LIST changes: +MULT-974 PO
--- NOTE | 2022-11-17 11:08 | Progress Note-Pre Operative ---
Pre-Operative Progress Note Date of Available H&P: Nov 17, 2022 Date H&P Reviewed: Nov 17, 2022 Time H&P Reviewed: 11:05 History & Physical: No changes noted Pre-Operative Diagnosis: right breast mass SULY NEUMANN MD Nov 17, 2022 11:08
[2022-11-17] MEDS ORDERED: HYDR-3817 PO (11:09)
--- NOTE | 2022-11-17 11:10 | Discharge Inst-Surgical ---
D/C Lap Instructions-KIDJeremy New, Converted, or Re-Newed RX: RX on Chart Follow Up Appt in 2 weeks Activity as tolerated Regular Diet Symptoms to Report: Fever over 101 degree F, Nausea/Vomiting Infection Signs and Symptoms to report: Increased redness, Foul odor of wound, Increased drainage Bathing instructions: May shower Operative Area Clean/Dry; Keep incision clean/dry If any problems/questions: Contact your physician or go to Emergency Room SULY NEUMANN MD Nov 17, 2022 11:10
[2022-11-17] MEDS ORDERED: morphine INJ 10 MG/ML 1ML (SYR OR VIAL) IVP PRN ×2 (11:15)
[2022-11-17] MEDS ORDERED: ACETAMINOPHEN 325 MG TABLET PO PRN (11:15)
[2022-11-17] MEDS ORDERED: ONDANSETRON 4 MG/2 ML (SDV) Z0FRAN IVP PRN ×2 (11:15→13:30)
[2022-11-17] MEDS ORDERED: oxyCODONE/APAP 5/325MG (PERCOCET 5) TABLET PO PRN (11:15)
[2022-11-17] MEDS ORDERED: ceFAZolin INJECTION 2,000 MG in NS (IVPB) 50 ML 50 ML IV ONE (11:30)
[2022-11-17] MEDS ORDERED: LACTATED RINGERS 1,000 ML IV PRN (11:30)
[2022-11-17] MEDS ORDERED: fentaNYL INJ 100 MCG/2 ML AMP ONE ×2 (12:10→13:41)
[2022-11-17] MEDS ORDERED: MIDAZOLAM 2 MG/2 ML (VERSED) VIAL ONE (12:10)
[2022-11-17] MEDS ORDERED: ONDANSETRON 4 MG/2 ML (SDV) Z0FRAN ONE ×2 (12:10→13:37)
[2022-11-17] MEDS ORDERED: LIDOCAINE PF 2% 5 ML (XYLOCAINE) VIAL ONE (12:10)
[2022-11-17] MEDS ORDERED: proPOfol 200 MG/20 ML (DIPRIVAN) VIAL IV ONE (12:10)
[2022-11-17] MEDS ORDERED: dexAMETHasone INJ 10 MG/ML 1 ML VIAL ONE (12:10)
[2022-11-17] MEDS ORDERED: LIDOCAINE/EPI 1%-1:100,000 (XYLOCAINE) 20ML ONE (12:26)
[2022-11-17] MEDS ORDERED: SEVOFLURANE (ULTANE) 15 ML INHAL SOLN ONE (13:20)
--- NOTE | 2022-11-17 13:27 | Anesthesia-General Post-Op ---
General Patient Condition Mental Status/LOC: Same as Preop Cardiovascular: Satisfactory Nausea/Vomiting: Absent Respiratory: Satisfactory Pain: Controlled Complications: Absent Post Op Complications Complications None Follow Up Care/Instructions Patient Instructions None needed. Anesthesia/Patient Condition Patient Condition Patient is doing well, no complaints, stable vital signs, no apparent adverse anesthesia problems. No complications reported per nursing. TOSHIA BARNES CRNA Nov 17, 2022 13:27
[2022-11-17] MEDS ORDERED: fentaNYL INJ 100 MCG/2 ML AMP IVP ONE (13:30)
--- NOTE | 2022-11-17 13:33 | Progress Note-Post Operative ---
Post-Operative Progess Note Surgeon (s)/Non Food Receiving Clerk (s) Surgeon SULY NEUMANN MD Non Food Receiving Clerk: mike lewis DRYING OVEN TENDER Pre-Operative Diagnosis right breast mass Post-Operative Diagnosis same Procedure & Operative Findings Date of Procedure 11/17/22 Procedure Performed/Findings right breast excisional biopsy Anesthesia Type general LMA with local Estimated Blood Loss Estimated blood loss (mL): minimal Specimens/Packing Specimens Removed right breast mass. SULY NEUMANN MD Nov 17, 2022 13:33
[2022-11-17] MEDS ORDERED: LIDOCAINE/EPI 1%-1:100,000 (XYLOCAINE) 20ML INJ ONE (13:36)
[2022-11-17] MEDS ORDERED: oxyCODONE/APAP 5/325MG (PERCOCET 5) TABLET ONE (14:33)
--- NOTE | 2022-11-17 14:55 | OPERATIVE REPORT ---
DATE OF SERVICE: 11/17/2022 ATTENDING PRIMARY CALL CENTER MANAGER: Deann Hernández APRN PREOPERATIVE DIAGNOSIS: Persistent right breast mass. POSTOPERATIVE DIAGNOSES: Persistent right breast mass. PROCEDURE: Right breast biopsy. SURGEON: Suly Neumann MD MANAGER INTERNAL: Klever Carrillo APRN ANESTHESIA: General laryngeal mask airway with local. ESTIMATED BLOOD LOSS: Minimal. FINDINGS: Lobulated mass approximately 2.5 cm in size. Grossly benign fibroadenoma. DISPOSITION: The patient tolerated the procedure well. INDICATIONS: The patient is a 32-year-old female who we have seen before in the past for an umbilical hernia, which we had repaired 04/11/2022. The patient was referred to us for a right breast lesion. Around 09/2020, she did discover a palpable breast mass and then underwent a mammogram and this was followed by a stereotactic breast biopsy, which was consistent with a fibroadenoma. She states that the lesion had grown larger in size in recent months. She underwent a recent ultrasound, which did show a lobulated solid mass at approximately 8 o'clock position of the right breast. This is palpable to palpation. The patient states that She started menses at around age 15 and did use oral contraceptive pills for approximately one year. She has been 3 times and given 1 live with 2 miscarriages. She does not know of known family history of breast cancer; however, she does not know her mother well. She does not report any abnormal nipple discharge. DESCRIPTION OF PROCEDURE: The patient was brought to the operating room, laid supine on the table. After adequate IV pain and sedative medications and general laryngeal mask airway intubation, the right chest was prepped and draped in standard surgical fashion. A 0.5% Marcaine with epinephrine was then used to anesthetize the overlying skin at approximately the 8 o'clock position underneath the nipple areolar complex of the right breast. A crescent-shaped skin incision was then made using a #15 blade and the subcutaneous tissue dissected using electrocautery. The lesion was identified and had a white lobulated pearly appearance, likely consistent with benign fibroadenoma. Using Ena clamps and dissecting completely around the lesion with electrocautery, good hemostasis was observed. The lesion was then sent to pathology. The breast tissue was then loosely approximated using 3-0 Vicryl interrupted sutures and the subcutaneous tissue was reapproximated with the same suture. Skin was closed using 4-0 Monocryl running subcuticular suture. Wound was then cleaned and covered in Dermabond. The patient tolerated the procedure well. We will start IV normal pain medication as well as a clear liquid diet. Once tolerating clears, has good pain control with oral pain medications, ambulating well with discharge her home. It should also be instructed to keep the area clean and dry and to wear a supportive garments to prevent a seroma. We will also have her follow up in approximately 2 weeks to discuss the pathology results. Job ID: [id number] DocumentID: [id number] Dictated Date: 11/17/2022 13:24:19 Manager Ambulatory Date: 11/17/2022 14:53:00 Dictated By: SULY NEUMANN MD
== END 2022-11-17 15:10 | disposition home or self-care (01) ==
LOC: SDC 11:06
PROVIDERS: ATTEND Surgery
DX: D24.1 Benign neoplasm of right breast (principal); F17.210 Nicotine dependence, cigarettes, uncomplicated; Z28.310 Unvaccinated for COVID-19
CPT/HCPCS: 84703; 87081

== ENCOUNTER → 2023-01-04 | Outpatient (CLI) | payer MEDICAID ==
[~2023-01-04] MED LIST changes: +HYDR-3817 PO
--- NOTE | 2023-01-04 20:21 | Diagnostic Imaging Report ---
INDICATION: Status post right breast lumpectomy, complaining of right breast pain. EXAMINATION: Sonographic interrogation of area of pain in right breast was performed. FINDINGS: This corresponds to the 7:30 location approximately 3-4 cm from the nipple. There is a small fluid collection at this location measuring 1.2 x 0.9 x 1.8 cm. This appears to be fairly simple and may represent a postoperative seroma. No other abnormality is seen. IMPRESSION: Findings most suggestive of a postoperative seroma at the lumpectomy site, 7:30 location of right breast. ACR BI-RADS Category 2: Benign findings. Result letter will be mailed to the patient. Note: At least 10% of breast cancer is not imaged by mammography. Dictated by: Dictated on workstation # [id number]
== END ==
LOC: RAD 13:57
PROVIDERS: ATTEND Surgery
DX: N64.4 Mastodynia (principal); Z90.11 Acquired absence of right breast and nipple